=== PATIENT | female | born 1950 | race American Indian/Alaskan Native ===

== ENCOUNTER → 2017-06-25 | Outpatient (CLI) | payer OTHER, MEDICARE ==
[2017-06-25 12:16] LABS: HEMATOCRIT 33.1 % (37-47); MEAN CORPUSCULAR HEMOGLOBIN 30.3 pg (25-34); MEAN CORPUSCULAR HGB CONC 32.6 g/dl (32-36); MEAN PLATELET VOLUME 9.4 fL (7.4-10.4); PLATELET COUNT 311 K/uL (130-400); RED BLOOD COUNT 3.56 M/uL (4.2-5.4)
[2017-06-25 12:37] LABS: BLOOD UREA NITROGEN 14 mg/dl (7-18); BUN/CREATININE RATIO 20.4 (10-20); CALCIUM 8.5 mg/dl (8.5-10.1); CARBON DIOXIDE 29 mmol/L (21-32); CHLORIDE 107 mmol/L (98-107); CREATININE 0.68 mg/dl (0.60-1.20); GLUCOSE,FASTING 97 mg/dl (70-99); SODIUM 140 mmol/L (136-145)
[2017-06-25 12:48] LABS: CHOLESTEROL 227 mg/dl (0-200); CHOLESTEROL/HDL RATIO 4.6; HDL CHOLESTEROL 49 mg/dl; LDL CHOLESTEROL CALCULATED 125 mg/dl; TRIGLYCERIDES 263 mg/dl (0-150); VERY LOW DENSITY LIPOPROT CALC 53 mg/dl
== END | disposition home or self-care (01) ==
LOC: C.LABPBG 10:23
PROVIDERS: ATTEND Physician Assistant
DX: Z00.00 Encounter for general adult medical examination without abnormal findings (principal); E03.9 Hypothyroidism, unspecified; D64.9 Anemia, unspecified

== ENCOUNTER → 2017-10-12 | Outpatient (CLI) | payer OTHER, MEDICARE ==
[2017-10-12 17:14] LABS: HEMATOCRIT 29.5 % (37-47); MEAN CELL VOLUME 78.7 fL (80-100); MEAN CORPUSCULAR HGB CONC 30.5 g/dl (32-36); MEAN PLATELET VOLUME 9.7 fL (7.4-10.4); PLATELET COUNT 307 K/uL (130-400); RED CELL DISTRIBUTION WIDTH CV 15.7 % (11.5-14.5); RED CELL DISTRIBUTION WIDTH SD 45.1 fL (36.4-46.3); WHITE BLOOD COUNT 4.13 K/uL (4.8-10.8)
== END | disposition home or self-care (01) ==
LOC: C.LABPBG 14:37
PROVIDERS: ATTEND Physician Assistant
DX: D64.9 Anemia, unspecified (principal); E03.9 Hypothyroidism, unspecified

== ENCOUNTER → 2017-11-16 | Outpatient (CLI) | payer OTHER, MEDICARE ==
[2017-11-20 04:18] LABS: ANA SCREEN TC 249X NEGATIVE (NEGATIVE); ANTI-SS-A <1.0 NEG AI (<1.0 NEG); ANTI-SS-B <1.0 NEG AI (<1.0 NEG); COMPLEMENT C3 TC 44859W 166 MG/DL (90-180); COMPLEMENT C4 TC 44982E 48 MG/DL (16-47)
== END | disposition home or self-care (01) ==
LOC: C.LABPBG 11:39
PROVIDERS: ATTEND Internal Medicine Rheumatology
DX: M13.80 Other specified arthritis, unspecified site (principal)

== ENCOUNTER → 2017-12-18 | Outpatient (CLI) | payer OTHER, MEDICARE ==
[2017-12-18 17:01] LABS: BASO % 0.4 %; BASO ABS # 0.02 K/uL (0-0.2); EOS % 2.1 %; EOS ABS # 0.11 K/uL (0-0.5); HEMATOCRIT 34.1 % (37-47); HEMOGLOBIN 10.8 g/dL (12.0-16.0); IG# 0.01 K/uL (0.00-0.02); LYMPH % 20.5 %; LYMPH ABS # 1.07 K/uL (1.2-3.4); MEAN CELL VOLUME 81.4 fL (80-100); MEAN CORPUSCULAR HEMOGLOBIN 25.8 pg (25-34); MEAN CORPUSCULAR HGB CONC 31.7 g/dl (32-36); MEAN PLATELET VOLUME 9.4 fL (7.4-10.4); MONO % 9.8 %; MONO ABS # 0.51 K/uL (0.11-0.59); NEUT ABS # 3.49 K/uL (1.4-6.5); PLATELET COUNT 398 K/uL (130-400); RED CELL DISTRIBUTION WIDTH CV 22.3 % (11.5-14.5); RED CELL DISTRIBUTION WIDTH SD 65.6 fL (36.4-46.3); WHITE BLOOD COUNT 5.21 K/uL (4.8-10.8)
[2017-12-18 17:33] LABS: ALBUMIN 3.4 gm/dl (3.4-5.0); ALT/SGPT 23 U/L (12-78); AST/SGOT 21 U/L (15-37); BLOOD UREA NITROGEN 17 mg/dl (7-18); CARBON DIOXIDE 27 mmol/L (21-32); CREATININE 0.73 mg/dl (0.60-1.20); GLUCOSE 80 mg/dl (70-99); POTASSIUM 3.8 mmol/L (3.5-5.1); SODIUM 137 mmol/L (136-145)
[2017-12-18 17:38] LABS: ALKALINE PHOSPHATASE 91 U/L (45-117); TOTAL PROTEIN 7.2 gm/dl (6.4-8.2)
== END | disposition home or self-care (01) ==
LOC: C.LABPBG 14:11
PROVIDERS: ATTEND Internal Medicine Hematology & Oncology
DX: D50.9 Iron deficiency anemia, unspecified (principal)

== ENCOUNTER → 2018-01-14 | Outpatient (CLI) | payer OTHER, MEDICARE ==
[2018-01-14 13:21] LABS: BASO % 0.4 %; BASO ABS # 0.02 K/uL (0-0.2); EOS % 2.4 %; EOS ABS # 0.11 K/uL (0-0.5); HEMOGLOBIN 11.8 g/dL (12.0-16.0); LYMPH % 19.1 %; LYMPH ABS # 0.88 K/uL (1.2-3.4); MEAN CELL VOLUME 83.5 fL (80-100); MEAN CORPUSCULAR HEMOGLOBIN 27.4 pg (25-34); MEAN CORPUSCULAR HGB CONC 32.8 g/dl (32-36); MEAN PLATELET VOLUME 9.8 fL (7.4-10.4); MONO % 6.9 %; MONO ABS # 0.32 K/uL (0.11-0.59); NEUT % 71.2 %; NEUT ABS # 3.28 K/uL (1.4-6.5); PLATELET COUNT 251 K/uL (130-400); RED CELL DISTRIBUTION WIDTH CV 19.7 % (11.5-14.5); RED CELL DISTRIBUTION WIDTH SD 60.2 fL (36.4-46.3); WHITE BLOOD COUNT 4.61 K/uL (4.8-10.8)
[2018-01-14 14:21] LABS: ALBUMIN 3.5 gm/dl (3.4-5.0); ALT/SGPT 25 U/L (12-78); BLOOD UREA NITROGEN 12 mg/dl (7-18); CALCIUM 8.9 mg/dl (8.5-10.1); CARBON DIOXIDE 28 mmol/L (21-32); CREATININE 0.73 mg/dl (0.60-1.20); GLUCOSE 91 mg/dl (70-99); SODIUM 136 mmol/L (136-145)
[2018-01-14 14:35] LABS: ALKALINE PHOSPHATASE 83 U/L (45-117); AST/SGOT 22 U/L (15-37); TOTAL PROTEIN 7.2 gm/dl (6.4-8.2)
== END | disposition home or self-care (01) ==
LOC: C.LABPBG 10:21
PROVIDERS: ATTEND Family Medicine
DX: E03.9 Hypothyroidism, unspecified (principal); Z79.899 Other long term (current) drug therapy; R60.0 Localized edema

== ENCOUNTER → 2018-04-29 | Outpatient (CLI) | payer OTHER, MEDICARE ==
[2018-04-29 16:58] LABS: BASO % 0.3 %; BASO ABS # 0.02 K/uL (0-0.2); EOS % 2.9 %; EOS ABS # 0.17 K/uL (0-0.5); HEMATOCRIT 34.1 % (37-47); HEMOGLOBIN 10.9 g/dL (12.0-16.0); LYMPH % 15.7 %; LYMPH ABS # 0.92 K/uL (1.2-3.4); MEAN CELL VOLUME 89.3 fL (80-100); MEAN CORPUSCULAR HEMOGLOBIN 28.5 pg (25-34); MEAN PLATELET VOLUME 9.7 fL (7.4-10.4); MONO % 7.7 %; MONO ABS # 0.45 K/uL (0.11-0.59); NEUT % 73.4 %; PLATELET COUNT 285 K/uL (130-400); RED CELL DISTRIBUTION WIDTH SD 48.9 fL (36.4-46.3); WHITE BLOOD COUNT 5.86 K/uL (4.8-10.8)
[2018-04-29 17:22] LABS: ALKALINE PHOSPHATASE 76 U/L (45-117); ALT/SGPT 19 U/L (12-78); AST/SGOT 18 U/L (15-37); BLOOD UREA NITROGEN 15 mg/dl (7-18); CALCIUM 8.4 mg/dl (8.5-10.1); CARBON DIOXIDE 28 mmol/L (21-32); CREATININE 0.67 mg/dl (0.60-1.20); GLUCOSE 103 mg/dl (70-99); POTASSIUM 3.8 mmol/L (3.5-5.1); SODIUM 137 mmol/L (136-145); TOTAL PROTEIN 6.8 gm/dl (6.4-8.2)
== END | disposition home or self-care (01) ==
LOC: C.LABPBG 13:58
PROVIDERS: ATTEND Nurse Practitioner Family
DX: D50.9 Iron deficiency anemia, unspecified (principal)

== ENCOUNTER → 2018-05-04 | Outpatient (CLI) | payer OTHER, MEDICARE ==
[2018-05-04 13:14] LABS: BASO % 0.2 %; BASO ABS # 0.01 K/uL (0-0.2); EOS % 2.5 %; EOS ABS # 0.16 K/uL (0-0.5); HEMATOCRIT 35.3 % (37-47); HEMOGLOBIN 11.2 g/dL (12.0-16.0); IG# 0.01 K/uL (0.00-0.02); LYMPH % 11.6 %; LYMPH ABS # 0.75 K/uL (1.2-3.4); MEAN CELL VOLUME 89.8 fL (80-100); MEAN CORPUSCULAR HEMOGLOBIN 28.5 pg (25-34); MEAN CORPUSCULAR HGB CONC 31.7 g/dl (32-36); MEAN PLATELET VOLUME 9.7 fL (7.4-10.4); MONO % 6.8 %; MONO ABS # 0.44 K/uL (0.11-0.59); NEUT % 78.7 %; NEUT ABS # 5.12 K/uL (1.4-6.5); PLATELET COUNT 272 K/uL (130-400); RED CELL DISTRIBUTION WIDTH CV 14.8 % (11.5-14.5); RED CELL DISTRIBUTION WIDTH SD 48.7 fL (36.4-46.3); WHITE BLOOD COUNT 6.49 K/uL (4.8-10.8)
[2018-05-04 14:59] LABS: ALBUMIN 3.3 gm/dl (3.4-5.0); BLOOD UREA NITROGEN 14 mg/dl (7-18); CARBON DIOXIDE 29 mmol/L (21-32); CREATININE 0.55 mg/dl (0.60-1.20); GLUCOSE 96 mg/dl (70-99); PHOSPHORUS 3.2 mg/dl (2.5-4.9); SODIUM 140 mmol/L (136-145)
[2018-05-06 20:17] LABS: ANA SCREEN TC 249X POSITIVE (NEGATIVE)
[2018-05-10 14:39] LABS: ANA TITER 1:40 TITER (<1:40)
== END | disposition home or self-care (01) ==
LOC: C.LAB1850 12:26
PROVIDERS: ATTEND Orthopaedic Surgery
DX: M25.462 Effusion, left knee (principal)

== ENCOUNTER 2019-08-03 07:37 | Inpatient (IN) ==
--- NOTE | 2019-07-21 16:27 | PAT Medication Instructions ---
Medication Instructions Date of Service July 21, 2019 Home Medications Medication Instructions Recorded levothyroxine 75 mcg tablet 75 mcg PO QAM #90 tab 03/21/19 Medications Centrum Silver 1 tab PO QAM 08/23/18 [History Confirmed 07/19/19] Ocuvite Adult 50 Plus 1 cap PO QAM 08/23/18 [History Confirmed 07/19/19] calcium carbonate [Calcium 600] 600 mg PO QDD 08/23/18 [History Confirmed 07/19/19] cholecalciferol (vitamin D3) [Vitamin D3] 5,000 unit PO HS 08/23/18 [History Confirmed 07/19/19] coenzyme Q10 [Co Q-10] 100 mg PO QAM 08/23/18 [History Confirmed 07/19/19] ferrous sulfate [iron] 325 mg PO QDL 08/23/18 [History Confirmed 07/19/19] folic acid 1 mg PO QAM 08/23/18 [History Confirmed 07/19/19] magnesium oxide 400 mg PO HS 08/23/18 [History Confirmed 07/19/19] omega 3-mlc-jsn-fish oil [Fish Oil] 1 cap PO BID 08/23/18 [History Confirmed 07/19/19] levothyroxine 75 mcg tablet 75 mcg PO QAM #90 tab 03/21/19 [Rx Confirmed 07/19/19] abatacept (with maltose) 250 mg intravenous solution 1 mg IV MONTHLY ea 06/16 [History Confirmed 07/19/19] hmtxrrx-wgjnprevitpos-pdetvyff 250 mg-250 mg-65 mg tablet 1 tab PO QAM PRN 06/26/19 [History Confirmed 07/19/19] prednisone 5 mg tablet 5 mg PO QAM 06/29/19 [History Confirmed 07/19/19] citalopram 10 mg PO HS 07/13/19 [History Confirmed 07/19/19] latanoprost 1 drp OPHTHALMIC (EYE) PM 07/13/19 [History Confirmed 07/19/19] psyllium husk [Metamucil] 1 tbsp PO QAM 07/13/19 [History Confirmed 07/19/19] ASK your surgeon for instructions udlmbtv-ljchnuwzsgozb-oppwdfcs 250 mg-250 mg-65 mg tablet 1 tab PO QAM PRN 06/14 11/30 [History Confirmed 07/19/19] ASK your prescriber and surgeon abatacept (with maltose) 250 mg intravenous solution 1 mg IV MONTHLY ea 06/16/19 [History Confirmed 07/19/19] STOP taking 2 weeks before surgery (or as soon as possible if surgery is within 2 weeks) Ocuvite Adult 50 Plus 1 cap PO QAM 08/23/18 [History Confirmed 07/19/19] omega 8-uqv-spf-fish oil [Fish Oil] 1 cap PO BID 08/23/18 [History Confirmed 07/19/19] coenzyme Q10 [Co Q-10] 100 mg PO QAM 08/23/18 [History Confirmed 07/19/19] DO NOT take the morning of surgery Centrum Silver 1 tab PO QAM 08/23/18 [History Confirmed 07/19/19] ferrous sulfate [iron] 325 mg PO QDL 08/23/18 [History Confirmed 07/19/19] folic acid 1 mg PO QAM 08/23/18 [History Confirmed 07/19/19] psyllium husk [Metamucil] 1 tbsp PO QAM 07/13/19 [History Confirmed 07/19/19] Take morning of surgery With a small sip of water, OTHERWISE NOTHING TO EAT OR DRINK AFTER MIDNIGHT: levothyroxine 75 mcg tablet 75 mcg PO QAM #90 tab 03/21/19 [Rx Confirmed 07/19/19] prednisone 5 mg tablet 5 mg PO QAM 06/29/19 [History Confirmed 07/19/19] Take evening before surgery calcium carbonate [Calcium 600] 600 mg PO QDD 08/23/18 [History Confirmed 07/19/19] cholecalciferol (vitamin D3) [Vitamin D3] 5,000 unit PO HS 08/23/18 [History Confirmed 07/19/19] magnesium oxide 400 mg PO HS 08/23/18 [History Confirmed 07/19/19] citalopram 10 mg PO HS 07/13/19 [History Confirmed 07/19/19] latanoprost 1 drp OPHTHALMIC (EYE) PM 07/13/19 [History Confirmed 07/19/19] Other Notes If you have any questions please call us at [phone] or [phone] or [phone] or [phone]
--- NOTE | 2019-07-22 08:47 | Anesthesiology Consultation ---
Date of Service July 22, 2019 Assessment & Plan (1) Encounter for pre-operative examination: PCP: 07/19/19: "patient is at acceptable risk for upcoming proposed surgery." Chart Review Chart Review: Pending: Refer to Additional Notes / Consult section (pending preop testing (labs, CXR, c-spine xray)) and Patient seen in Pre Admission Testing Teaching & Discussion Pre-Anesthesia Teaching/Discussion Notes: Instructed NPO after midnight before surgery,except medications with 15 cc of water. Medication instructions provided according to the PAT guidelines. History Surgery Operation Date: 08/03/19 10:30 Proposed Procedures p Left Total Knee Arthroplasty - Marko Porter DO Height/Weight Height: 5 ft 5 in Weight: 56.9 kg Allergies Allergy/AdvReac Type Severity Reaction Status Date / Time No Known Allergies Allergy Verified 07/19/19 08:52 Medications Home Medications Medication Instructions Recorded Confirmed Last Taken Centrum Silver 1 tab PO QAM 08/23/18 07/19/19 10/15/18 11:00 Ocuvite Adult 50 Plus 1 cap PO QAM 08/23/18 07/19/19 10/17/18 11:00 calcium carbonate [Calcium 600] 600 mg PO QDD 08/23/18 07/19/19 10/16/18 18:00 cholecalciferol (vitamin D3) 5,000 unit PO HS 08/23/18 07/19/19 10/16/18 10:00 [Vitamin D3] coenzyme Q10 [Co Q-10] 100 mg PO QAM 08/23/18 07/19/19 10/16/18 18:00 ferrous sulfate [iron] 325 mg PO QDL 08/23/18 07/19/19 10/17/18 11:00 folic acid 1 mg PO QAM 08/23/18 07/19/19 10/16/18 11:00 magnesium oxide 400 mg PO HS 08/23/18 07/19/19 10/16/18 18:00 omega 3-wka-mon-fish oil [Fish Oil] 1 cap PO BID 08/23/18 07/19/19 10/16/18 18:00 levothyroxine 75 mcg tablet 75 mcg PO QAM #90 tab 03/21/19 07/19/19 Unknown abatacept (with maltose) 250 mg 1 mg IV MONTHLY ea 06/16/19 07/19/19 Unknown intravenous solution ugocgci-xmpxvgpuklznu-shxmzpnh 250 1 tab PO QAM PRN 06/26/19 07/19/19 Unknown mg-250 mg-65 mg tablet prednisone 5 mg tablet 5 mg PO QAM 06/29/19 07/19/19 Unknown citalopram 10 mg PO HS 07/13/19 07/19/19 Unknown latanoprost 1 drp OPHTHALMIC (EYE) PM 07/13/19 07/19/19 Unknown psyllium husk [Metamucil] 1 tbsp PO QAM 07/13/19 07/19/19 Unknown Past Medical History Medical History Rheumatoid arthritis on abatacept/prednisone* Anemia iron deficiency (PCP monitoring) Hypothyroidism Cyst of kidney, acquired History of high cholesterol Hx of migraines Gastritis Liver lesion, left lobe Glaucoma Bilateral cataracts Whitfield cyst Depression Dry mouth Osteoarthritis of knee History of upper gastrointestinal bleeding remote hx Hx of cancer of uterus 2001 s/p hysterectomy/chemo/xrt Exercise / Class Metabolic Activity III < 4 Walking/Shop/Light housework Past Family History Family History Grandfather (Maternal) Family hx of colon cancer Diabetes Sister Depression Aunt Ovarian cancer paternal Past Surgical History Surgical History History of section History of colonoscopy History of dilatation and curettage History of esophagogastroduodenoscopy (EGD) History of tonsillectomy and adenoidectomy History of tooth extraction wisdom teeth History of total abdominal hysterectomy and bilateral salpingo-oophorectomy 2000--uterine cancer Hx of arthroscopic knee surgery LEFT Past Anesthesia History No Hx of Anesthesia Complications and No Family Hx of Anesthesia Complications History of PONV No Hx of PONV and No Hx of Motion Sickness Social History Smoking Status: Never smoker Do You Dip or Chew Tobacco: No Smoking End Date: Quit 18 YR AGO Hx Alcohol Use: Yes Alcohol type: wine alcohol intake frequency: holidays/special occasions only Hx Substance Use: No substance use type: does not use Review of Systems Patient denies chest pain, shortness of breath, cough, wheezing, palpitations. Physical Exam Vital Signs VITALS BP 121/75 P 72 TEMP 99.3 SP02 97%RA RESP 16 PHYSICAL Full neck and c-spine range of motion. Full TMJ range of motion. TMD 3 finger breaths Mallampati Score 2 Dentition: crowns on molars Lungs: clear throughout to auscultation Cardiac: regular rate and rhythm, no murmurs noted Spine: normal Carotid arteries: negative bruit Extremities: no edema Testing Electrocardiogram Date: 07/19/19 SR at 64bpm.
--- NOTE | 2019-07-22 09:37 | XRay Report ---
XR chest Pre-admission PA/Lat CLINICAL HISTORY: pat preoperative evaluation COMPARISON STUDY: 10/05/2018 FINDINGS: The bones soft tissues and hemidiaphragms are normal. The cardiomediastinal silhouette is n ormal. The lungs are clear. The pulmonary vasculature is normal. IMPRESSION: Negative chest. The above report was generated using voice recognition software. It may contain grammatical, syntax or spelling errors. Electronically signed by: Wesly Lenz M.D. 07/22/2019 9:35 AM
--- NOTE | 2019-07-22 09:38 | XRay Report ---
XR cervical spine 2 or 3V HISTORY: Arthritis. Instability. RHEUMATOID ARTHRITIS COMPARISON: None. FINDINGS: The cervical spine is visualized from C1 through the superior endplate of T1. There is no f racture. No subluxation. Minimal degenerative disc change no evidence for positional subluxation of the C1-C2 complex IMPRESSION: 1. No acute process. 2. C1-C2 complex is stable with varying positions. The above report was generated using voice recognition software. It may contain grammatical, syntax or spelling errors. Electronically signed by: Wesly Lenz M.D. 07/22/2019 9:36 AM
[2019-07-22 10:11] LABS: Basophils # (auto) 0.02 K/uL (0-0.2); Basophils % (auto) 0.3 %; Eosinophils # (auto) 0.09 K/uL (0-0.5); Eosinophils % (auto) 1.2 %; Hemoglobin 12.5 g/dL (12.0-16.0); Immature Granulocytes # (auto) 0.01 K/uL (0.00-0.02); Immature Granulocytes % (auto) 0.1 %; Lymphocytes % (auto) 8.1 %; Mean Corpuscular Hemoglobin 29.5 pg (25-34); Mean Corpuscular Hgb Conc 32.9 g/dL (32-36); Mean Corpuscular Volume 89.6 fL (80-100); Mean Platelet Volume 10.2 fL (7.4-10.4); Monocytes # (auto) 0.48 K/uL (0.11-0.59); Monocytes % (auto) 6.5 %; Neutrophils % (auto) 83.8 %; Platelet Count 261 K/uL (130-400); RDW Coefficient of Variation 14.3 % (11.5-14.5); RDW Standard Deviation 47.3 fL (36.4-46.3); Red Blood Count 4.24 M/uL (4.2-5.4)
[2019-07-22 10:14] LABS: Estimated Average Glucose 114 mg/dl; Hemoglobin A1C 5.6 % (4.5-5.6)
[2019-07-22 10:19] LABS: Albumin Level 3.2 gm/dl (3.4-5.0); Calcium 9.3 mg/dl (8.5-10.1); Creatinine Clr Calc Pharmacy 60.2 ml/min; Est GFR (Non-African American) 77.7
[2019-07-22 10:33] LABS: Partial Thromboplastin Ratio 0.8; Partial Thromboplastin Time 21.9 Seconds (21.0-31.0)
[2019-07-22 10:34] LABS: Appearance Urine Clear (Clear); Bilirubin Urine Negative (Negative); Blood Urine Negative (Negative); Color Urine Dark Yellow; Glucose Urine UA Negative (Negative); Ketones Urine Negative (Negative); Leukocyte Esterase Urine Negative (Negative); Nitrite Urine Negative (Negative); Protein Urine Negative (Negative); Specific Gravity Urine 1.011 (1.000-1.030); Urobilinogen Urine Negative (Negative); pH Urine 6.5 (4.5-7.5)
--- NOTE | 2019-07-27 18:04 | History & Physical Report ---
Date of Service July 27, 2019 date of surgery: 08-03-19 Assessment & Plan (1) Arthritis of knee, left: Further care discussed with Humaira and at this point in time has failed conservative measures and would like to proceed with a Left total knee replacement. Plan on discharge will be home with home health physical therapy. DVT prophalaxis with TEDs, SCDs and will also place on aspirin 81 mg p.o. b.i.d. for a month postop. Patient will have follow up appointment in our office two weeks post op for staple removal and re-evaluation. Patient otherwise has no other questions or concerns. History of Present Illness Chief Complaint: left knee pain Primary Care Provider: Kathryn Benson DO Ms Greer is a 69 year old female who is here for a follow up of left knee pain, presents for pre-op evaluation prior to a left total knee replacement at [facility]. She presents with pain and stiffness on the left side. She states that the symptoms have been chronic non-traumatic and her symptoms occur constantly with intermittent worsening. her pain has gradually worsened. Currently the patient states that the symptoms are moderate-severe and pain is described as aching and sharp. The symptoms are aggravated by ascending stairs, daily activities, first steps while awake, kneeling, repetitive activities, sleeping on the affected side, squatting, standing, walking. In addition to left knee pain the patient is also experiencing limping, nighttime awakening, pain, stiffness, tenderness and weakness. She has been treated with previous visco supplementation and corticosteroid injections, no relief with injections. Patient ambulates daily with cane. she also had previous left knee scope and partial menisectomy in September 2018. Allergies Allergy/AdvReac Type Severity Reaction Status Date / Time No Known Allergies Allergy Verified 07/19/19 08:52 Home Medications Home Medications Medication Instructions Recorded Confirmed Type Centrum Silver 1 tab PO QAM 08/23/18 07/19/19 History Ocuvite Adult 50 Plus 1 cap PO QAM 08/23/18 07/19/19 History calcium carbonate [Calcium 600] 600 mg PO QDD 08/23/18 07/19/19 History cholecalciferol (vitamin D3) 5,000 unit PO HS 08/23/18 07/19/19 History [Vitamin D3] coenzyme Q10 [Co Q-10] 100 mg PO QAM 08/23/18 07/19/19 History ferrous sulfate [iron] 325 mg PO QDL 08/23/18 07/19/19 History folic acid 1 mg PO QAM 08/23/18 07/19/19 History magnesium oxide 400 mg PO HS 08/23/18 07/19/19 History omega 0-jzf-vda-fish oil [Fish Oil] 1 cap PO BID 08/23/18 07/19/19 History levothyroxine 75 mcg tablet 75 mcg PO QAM #90 tab 03/21/19 07/19/19 Rx abatacept (with maltose) 250 mg 1 mg IV MONTHLY ea 06/16/19 07/19/19 History intravenous solution kauvtoq-eogbdegikvjps-bgljnbvl 250 1 tab PO QAM PRN 06/26/19 07/19/19 History mg-250 mg-65 mg tablet prednisone 5 mg tablet 5 mg PO QAM 06/29/19 07/19/19 History citalopram 10 mg PO HS 07/13/19 07/19/19 History latanoprost 1 drp OPHTHALMIC (EYE) PM 07/13/19 07/19/19 History psyllium husk [Metamucil] 1 tbsp PO QAM 07/13/19 07/19/19 History Past Med/Surg History Medical History Anemia iron deficiency (PCP monitoring) Whitfield cyst Bilateral cataracts Cyst of kidney, acquired Depression Dry mouth Gastritis Glaucoma History of high cholesterol History of upper gastrointestinal bleeding remote hx Hx of cancer of uterus 2001 s/p hysterectomy/chemo/xrt Hx of migraines Hypothyroidism Liver lesion, left lobe Osteoarthritis of knee Rheumatoid arthritis on abatacept/prednisone* Surgical History History of section History of colonoscopy History of dilatation and curettage History of esophagogastroduodenoscopy (EGD) History of tonsillectomy and adenoidectomy History of tooth extraction wisdom teeth History of total abdominal hysterectomy and bilateral salpingo-oophorectomy 2000--uterine cancer Hx of arthroscopic knee surgery LEFT Family History Grandfather (Maternal) Family hx of colon cancer Diabetes Sister Depression Aunt Ovarian cancer paternal Social History Preferred Language: Cymraes Communication Ability: Effective Lozenge Maker Required: No Beliefs That Will Affect Care: None Current Living Situation: Spouse Current Living Situation Comment: HAS MS Feels Safe at Home: Yes Smoking Status: Never smoker Second Hand Exposure: No ; Hx Alcohol Use: Yes Alcohol type: wine Hx Substance Use: No Seatbelt Use: always Review of Systems Review of Systems: All systems reviewed & are unremarkable except as noted in HPI & below Constitutional: no fever, no chills and no sweats Respiratory: no cough and no dyspnea Cardiovascular: no chest pain, no dyspnea and no orthopnea Gastrointestinal: no abdominal pain, no nausea and no vomiting Musculoskeletal: as per Subjective / HPI Physical Exam Physical Exam: Ht: 5ft 5in Wt: 56.9kg BP: 116/66 Pulse: 72 Constitutional: WD/WN, vitals as above no acute distress Respiratory: normal respiratory effort, lungs clear to auscultation no respiratory distress, no labored breathing and does not use accessory muscles Cardiovascular: RRR, no murmur, no edema Gastrointestinal (Abdomen): normal bowel sounds, soft, nontender, no hepatosplenomegaly Musculoskeletal: Knee: + knee abnormal to inspection (left knee- ), + effusion (+1 effusion), + surgical incision (well healed portals), + limited ROM of knee (ROM 0/3/110), + knee ROM with crepitation, + joint line tenderness (medial joint line) and + Chrystal's sign positive; no deformity, no skin erythema, no ecchymosis, no valgus laxity, no varus laxity, anterior drawer test negative, Aracely's sign negative and pivot shift test negative Results & Data Laboratory Results Laboratory Results WBC 7.40 K/uL (4.8-10.8) 07/22/19 09:00 RBC 4.24 M/uL (4.2-5.4) 07/22/19 09:00 Hgb 12.5 g/dL (12.0-16.0) 07/22/19 09:00 Hct 38.0 % (37-47) 07/22/19 09:00 MCV 89.6 fL (80-100) 07/22/19 09:00 MCH 29.5 pg (25-34) 07/22/19 09:00 MCHC 32.9 g/dL (32-36) 07/22/19 09:00 RDW Std Deviation 47.3 fL (36.4-46.3) H 07/22/19 09:00 RDW Coeff of Emely 14.3 % (11.5-14.5) 07/22/19 09:00 Plt Count 261 K/uL (130-400) 07/22/19 09:00 MPV 10.2 fL (7.4-10.4) 07/22/19 09:00 Immature Gran % (Auto) 0.1 % 07/22/19 09:00 Neut % (Auto) 83.8 % 07/22/19 09:00 Lymph % (Auto) 8.1 % 07/22/19 09:00 Crisp % (Auto) 6.5 % 07/22/19 09:00 Eos % (Auto) 1.2 % 07/22/19 09:00 Baso % (Auto) 0.3 % 07/22/19 09:00 Immature Gran # (Auto) 0.01 K/uL (0.00-0.02) 07/22/19 09:00 Neut # (Auto) 6.20 K/uL (1.4-6.5) 07/22/19 09:00 Lymph # (Auto) 0.60 K/uL (1.2-3.4) L 07/22/19 09:00 Crisp # (Auto) 0.48 K/uL (0.11-0.59) 07/22/19 09:00 Eos # (Auto) 0.09 K/uL (0-0.5) 07/22/19 09:00 Baso # (Auto) 0.02 K/uL (0-0.2) 07/22/19 09:00 PT 10.0 Seconds (9.0-12.0) 07/22/19 09:00 INR 1.0 (0.9-1.1) 07/22/19 09:00 APTT 21.9 Seconds (21.0-31.0) 07/22/19 09:00 PTT Ratio 0.8 07/22/19 09:00 Sodium 139 mmol/L (136-145) 07/22/19 09:00 Potassium 4.0 mmol/L (3.5-5.1) 07/22/19 09:00 Chloride 106 mmol/L (98-107) 07/22/19 09:00 Carbon Dioxide 29 mmol/L (21-32) 07/22/19 09:00 Anion Gap 4.0 (3-11) 07/22/19 09:00 BUN 14 mg/dl (7-18) 07/22/19 09:00 Creatinine 0.77 mg/dl (0.6-1.2) 07/22/19 09:00 Est Cr Clr Drug Dosing 60.2 ml/min 07/22/19 09:00 Est GFR ( Amer) 90.0 07/22/19 09:00 Est GFR (Non-Af Amer) 77.7 07/22/19 09:00 BUN/Creatinine Ratio 18.0 (10-20) 07/22/19 09:00 Glucose 97 mg/dl (70-99) 07/22/19 09:00 Estimat Average Glucose 114 mg/dl 07/22/19 09:00 Hemoglobin A1c 5.6 % (4.5-5.6) 07/22/19 09:00 Calcium 9.3 mg/dl (8.5-10.1) 07/22/19 09:00 Albumin 3.2 gm/dl (3.4-5.0) L 07/22/19 09:00 Urine Color Dark Yellow 07/22/19 09:00 Urine Appearance Clear (Clear) 07/22/19 09:00 Urine pH 6.5 (4.5-7.5) 07/22/19 09:00 Ur Specific [place] 1.011 (1.000-1.030) 07/22/19 09:00 Urine Protein Negative (Negative) 07/22/19 09:00 Urine Glucose (UA) Negative (Negative) 07/22/19 09:00 Urine Ketones Negative (Negative) 07/22/19 09:00 Urine Blood Negative (Negative) 07/22/19 09:00 Urine Nitrite Negative (Negative) 07/22/19 09:00 Urine Bilirubin Negative (Negative) 07/22/19 09:00 Urine Urobilinogen Negative (Negative) 07/22/19 09:00 Ur Leukocyte Esterase Negative (Negative) 07/22/19 09:00 Blood Type B Positive 07/22/19 09:00 Antibody Screen NEGATIVE 11/08/19 09:00 Diagnostic Findings Left Knee X-ray from March 2019 confirms advanced degenerative changes to the left knee, greatest medial compartments and patellofemoral joint, showing joint space narrowing, osteophyte formation and subchondral sclerosis. no acute bony pathology noted.
[~2019-08-03 07:37] MED LIST: ACETAMINOPHEN 500 MG TAB PO SCH; BUPIVACAINE 0.5 % 5 MG/1 ML PF 10ML VIAL ONE; CEFAZOLIN 1000MG 1,000 MG/7.5 ML SYR IV SCH; CeleBREX 200 MG CAP PO SCH; EPINEPHrine INJ 1 MG/ML AMP ONE; GABAPENTIN 300 MG CAP PO SCH; LR 15ML/HR IV SCH; MIDAZOLAM HCL 1 MG/ML 2ML VIAL ONE; ROPIVACAINE 0.5% 5 MG/ML 30 ML VIAL ONE; ROPIVACAINE 0.5% HCL/PF 150 MG, BUPIVACAINE 0.5% MPF 30 ML, EPINEPHrine 30MG/30ML (OR U... INFIL SCH; TRANEXAMIC ACID 1,000 MG **IV Intra-op IV SCH; TRANEXAMIC ACID 1,000 MG in 0.9 % SODIUM CHLORIDE 100 ML IV SCH; dexAMETHasone 4 MG TAB PO SCH; fentaNYL citrate 100 MCG/2 ML VIAL ONE
--- NOTE | 2019-08-03 08:19 | History & Physical Bridge Note ---
Date of Service August 03, 2019 History & Physical Bridge Note I have examined the patient, reviewed the History & Physical and in the interval since the performance of the History & Physical I have noted the following changes of clinical significance: no changes noted
[2019-08-03] MEDS ORDERED: ORTHO JOINT ANESTHETIC ONE (09:05)
[2019-08-03] MEDS ORDERED: BACITRACIN INJ 50,000 UNIT VIAL ONE (09:06)
[2019-08-03] MEDS ORDERED: PROPOFOL IV EMULSION 10 MG/ML 20 ML VIAL IV ONE ×2 (12:21→12:39)
[2019-08-03] MEDS ORDERED: PHENYLEPHRINE 100MCG/ML 5ML SYR ONE (12:23)
[2019-08-03] MEDS ORDERED: ePHEDrine sulfate 50 MG/ML SYR ONE (12:23)
[2019-08-03] MEDS ORDERED: ATROPINE SULFATE 0.1 MG/ML 10ML SYR IV PRN (12:34)
[2019-08-03] MEDS ORDERED: ePHEDrine sulfate 50 MG/ML AMP IV PRN (12:34)
--- NOTE | 2019-08-03 13:07 | Operative Report ---
Post Operative Report Pre & Post Diagnosis Operation Date: 08/03/19 10:10 Pre-Op Diagnosis: Left Knee Osteoarthritis Post-Op Diagnosis: Left Knee Osteoarthritis I identified the patient and participated in the time-out.: Yes Procedure Operation Date: 08/03/19 10:10 Actual Procedures p Left Total Knee Arthroplasty(Left) utilizing [employer] joursublette 2 patient matched total knee arthroplasty size 5 femur 4 tibia 12 polyethylene 32 oval patella- Marko Porter DO Surgeon Marko Porter DO Communications Coordinator Wesly LAWS Estimated Blood Loss 5 Findings Consistent with Post-Op Diagnosis Patient presents with severe end-stage tricompartmental degenerative joint disease left knee varus alignment 10 degree flexion contracture for total knee arthroplasty she was noted to have bone the bone changes marginal osteophyte subchondral sclerosis with eburnated bone Specimens Bone cartilage Drains Medium bore Hemovac Complications none Disposition Accompanied Patient To Recovery: No Disposition: Recovery Room Indications Patient presents with severe end-stage DJD is been no response to conservative therapy the above intraoperative findings noted patient failed attempts of Visco supplementation corticosteroid injection Visco supplementation relative rest activity modification bracing. Description of Procedure Patient properly identifiedAfter proper prepping and draping of the left lower extremity anterior midline incision was made over the region of the extensor extensor mechanism after meticulous hemostasis was obtained and maintained in subcutaneous tissues a medial parapatellar incision was made The patella was subluxed lateralward the medial lateral gutter were cleaned from any hypert rophic synovitis and scar tissue of the distal femoral block was placed and the distal femoral osteotomy cut was made subsequently the chamfers anterior and posterior osteotomy cuts were made utilizing the 4-in-1 block the tibia was subsequently subluxed anteriorward medial and ateral meniscal remnants were excised in their entirety remnants of the anterior and posterior cruciate ligaments were excised in their entirety excellent exposure of the proximal tibia was obtained the tibial osteotomy guide was placed on the proximal tibial osteotomy cut was made once again the knee was irrigated with copious amounts of sterile saline solution the patella was subsequently everted lateralward thickened scar tissue around the patella was removed the patella was subsequently cut utilizing a freehand technique and was drilled prepared for final preparation and placement of patella socially flexion-extension gaps were checked and the equal and symmetric trials were placed to the appropriate femora l and tibial trials with poly-spacer being placed for equal flexion and extension gaps and full range of motion including extension to 0 and flexion to 140 the trial components after having been taken to recovery range of motion was subsequently removed meticulous hemostasis was obtained and maintained subsequently a knee block injection of joint cocktail including ropivacaine 0.5% 150 mg. Bupivacaine 0.5% epinephrine 1-200,030 mL's toradol 30 mg dexamethasone 4 mg ketamine 10 mg clonidine 100 micrograms normal saline solution 30 mg was infiltrated into the soft tissues of the posterior knee medial lateral gutters and periosteal synovium special attention was paid to protect neurovascular structures at all times subsequently trial components having been removed the knee was irrigated with sterile saline solution. debris was removed the proximal tibia was subsequently prepared and was made ready for the placement of the tibial component tibial component was also cemented and tamped into position the femoral component was subsequently placed and cemented in the position the patellar component was subsequently cemented in position because hemostasis once again obtained and maintained wound having been thoroughly irrigated with debridement and debridement lavage was performed as well as a medial parapatellar incision closed with #1 Vicryl in interrupted fashion subcutaneous was closed with #2 Vicryl skin was closed with skin clips. PA-C was necessary for prepping and drapping as well as wound closure of deep fascia Sub cutaneous tissue and skin and was necessary for the case. A sterile compressive dressing was placed patient was taken to recovery in stable condition of report dictated by German I attest to the content of the Intraoperative Record and any orders documented therein. Any exceptions are noted below. I attest to the content of the Intraoperative Record and any orders documented therein. Any exceptions are noted below.
--- NOTE | 2019-08-03 14:22 | XRay Report ---
XR knee LT 1 or 2V routine HISTORY: 69 years-old Female Surgical Post Op left knee total joint arthroplasty COMPARISON: None available TECHNIQUE: 3 views of the left knee FINDINGS: Left knee total joint arthroplasty and patella resurfacing demonstrates satisfactory alignment. No ac choctaw fracture, dislocation or opaque foreign body. Anterior midline skin zachariah are noted along with expected postsurgical soft tissue swelling and deep tissue air. IMPRESSION: Satisfactory alignment of the left knee total joint arthroplasty. The above report was generated using voice recognition software. It may contain grammatical, syntax o r spelling errors. Electronically signed by: Refugio Clifford M.D. 08/03/2019 2:21 PM
--- NOTE | 2019-08-03 14:56 | Anesthesiology Progress Note ---
Date of Service August 03, 2019 Anesthesia Post Procedure Vital Signs Vital Signs: Temp Pulse Pulse Resp BP Pulse Ox 08/03/19 14:35 36.6 C 72 17 130/75 100 08/03/19 14:25 36.6 C 78 20 120/71 100 08/03/19 14:15 36.3 C L 79 20 122/72 99 08/03/19 14:05 36.3 C L 81 17 117/64 98 08/03/19 13:55 36.3 C L 85 17 125/61 98 08/03/19 13:46 36.3 C L 92 H 11 L 121/66 97 08/03/19 08:01 36.7 C 77 18 125/80 97 Transfer of Care Handoff Completed per policy Notes Mental Status: alert / awake / arousable Patient Amnestic to Procedure: Yes Nausea / Vomiting: adequately controlled Pain: adequately controlled Airway Patency, RR, SpO2: stable & adequate BP & HR: stable & adequate Hydration State: stable & adequate Neuraxial Anesthesia: was administered and sensory block is resolving Anesthetic Complications: no major complications apparent
[2019-08-03] MEDS ORDERED: NALOXONE HCL 0.4 MG/1 ML VIAL/CARP IV PRN (15:03)
[2019-08-03] MEDS ORDERED: OXYCODONE HCL IR 5 MG TAB (IMMEDIATE RELEASE) PO PRN (15:03)
[2019-08-03] MEDS ORDERED: bisacodyL 10 MG SUPP PR PRN (15:03)
[2019-08-03] MEDS ORDERED: METOCLOPRAMIDE HCL INJ 5 MG/ML 2 ML VIAL IV PRN (15:03)
[2019-08-03] MEDS ORDERED: MAGNESIUM HYDROXIDE SUSP 30 ML UDC PO PRN (15:03)
[2019-08-03] MEDS ORDERED: ONDANSETRON INJ 2 MG/ML 2 ML VIAL IV PRN (15:03)
[2019-08-03] MEDS ORDERED: SODIUM CHLORIDE 0.9% 1000ML 1,000 ML IV SCH (15:03)
[2019-08-03] MEDS ORDERED: HYDROmorphone INJ 1 MG/ML SYRINGE IV PRN (15:03)
[2019-08-03] MEDS: KETOROLAC TROMETHAMINE 15 MG/ML VIAL IV SCH ×2 (16:02→21:59)
[2019-08-03] MEDS: ACETAMINOPHEN 500 MG TAB PO SCH ×2 (16:03→21:59)
[2019-08-03] MEDS ORDERED: CALCIUM 600MG + VIT D 400 IU TAB PO SCH (16:30)
[2019-08-03] MEDS: DOCUSATE SODIUM 100 MG CAP PO SCH (20:24)
[2019-08-03] MEDS: CEFAZOLIN 1000MG 1,000 MG/7.5 ML SYR IV SCH (20:25)
[2019-08-03] MEDS: ASPIRIN 81 MG ECTAB PO SCH (20:26)
[2019-08-03] MEDS ORDERED: CITALOPRAM 20 MG TAB PO SCH (21:00)
[2019-08-03] MEDS ORDERED: CHOLECALCIFEROL 1,000 UNITS 25 MCG TAB PO SCH (21:00)
[2019-08-03] MEDS ORDERED: MAGNESIUM OXIDE 400 MG TAB PO SCH (21:00)
[2019-08-03] MEDS ORDERED: LATANOPROST 0.005% OP SOLN 2.5 ML BTL OP SCH (21:00)
[2019-08-03] MEDS ORDERED: SENNA 8.6 MG TAB PO SCH (21:00)
[2019-08-04] MEDS: CEFAZOLIN 1000MG 1,000 MG/7.5 ML SYR IV SCH (05:00)
[2019-08-04] MEDS: KETOROLAC TROMETHAMINE 15 MG/ML VIAL IV SCH ×2 (05:00→10:28)
[2019-08-04] MEDS: ACETAMINOPHEN 500 MG TAB PO SCH ×2 (05:02→13:39)
[2019-08-04 05:41] LABS: Hematocrit (blood only) 31.7 % (37-47); Hemoglobin 10.5 g/dL (12.0-16.0); Mean Corpuscular Hemoglobin 29.7 pg (25-34); Mean Corpuscular Hgb Conc 33.1 g/dL (32-36); Mean Corpuscular Volume 89.8 fL (80-100); Mean Platelet Volume 9.5 fL (7.4-10.4); Platelet Count 247 K/uL (130-400); RDW Coefficient of Variation 14.5 % (11.5-14.5); RDW Standard Deviation 47.9 fL (36.4-46.3); Red Blood Count 3.53 M/uL (4.2-5.4); White Blood Count 11.57 K/uL (4.8-10.8)
[2019-08-04 06:11] LABS: BUN Creatinine Ratio 17.4 (10-20); Calcium 8.4 mg/dl (8.5-10.1); Creatinine Clr Calc Pharmacy 55.6 ml/min; Est GFR (African American) 83.4; Potassium 4.2 mmol/L (3.5-5.1)
[2019-08-04] MEDS ORDERED: LEVOTHYROXINE SODIUM 75 MCG TABLET PO SCH (06:30)
[2019-08-04] MEDS: DOCUSATE SODIUM 100 MG CAP PO SCH (08:12)
--- NOTE | 2019-08-04 08:12 | Orthopedic Progress Note ---
Date of Service August 04, 2019 Assessment & Plan (1) History of total left knee replacement: POD #1 s/p Left TKA pt/ot dvt proph with [facility]/SCD/ASA plan for d/c home with HHPT when stable, recheck after PT today. Subjective POD #1 s/p Left TKA Review of Systems Constitutional: no fever, no chills and no sweats Respiratory: no cough and no dyspnea Cardiovascular: no chest pain and no dyspnea Gastrointestinal: no abdominal pain, no nausea and no vomiting Physical Exam Physical Exam: Vital Signs Temp 36.7 C 08/04/19 07:10 Pulse 64 08/04/19 07:10 Resp 15 08/04/19 07:10 BP 112/67 08/04/19 07:10 Pulse Ox 99 08/04/19 07:10 Intake & Output 08/03/19 08/04/19 08/04/19 18:59 06:59 18:59 Intake Total 2955 / 3105 150 / 3105 Output Total 55 / 355 300 / 355 Balance 2900 / 2750 -150 / 2750 Weight 56 kg Intake: IV 1455 / 1455 Lr 1,000 ml @ 15 mls/hr IV . 1000 / 1000 Q24H CATIA Rx#:[id number] Nss 1000ML 1,0 00 ml @ 100 mls/ 235 / 235 hr IV .Q10H SC H Rx#:[id number] Cyklokapron 1, 000 mg In Sodium 220 / 220 Chloride 100 m l @ 660 mls/hr IV 0630 CATIA Rx#:[id number] IV Perioperative 1500 / 1500 Oral 150 / 150 Output: Estimated Blood Loss 5 / 5 Drain Output 50 / 350 300 / 350 Left Knee Hemo vac #1 50 / 350 300 / 350 Other: # Unmeasured Voi ds 2 1 Constitutional: WD/WN, vitals as above no acute distress Musculoskeletal: Left Leg: NVDI, calf SNT, negative velia sign. DP palpable, able to wiggle toes/ankle movement without difficulty. dressing clean dry and intact. Results & Data Vital Signs (Past 12 Hours) Vital Signs Temp Pulse Resp BP BP Pulse Ox 08/04/19 07:10 36.7 C 64 15 112/67 99 08/04/19 04:18 36.5 C 73 14 107/62 99 08/04/19 00:10 36.6 C 71 14 96/57 L 99 Laboratory Results Laboratory Results WBC 11.57 K/uL (4.8-10.8) H 08/04/19 05:11 RBC 3.53 M/uL (4.2-5.4) L 08/04/19 05:11 Hgb 10.5 g/dL (12.0-16.0) L 08/04/19 05:11 Hct 31.7 % (37-47) L 08/04/19 05:11 MCV 89.8 fL (80-100) 08/04/19 05:11 MCH 29.7 pg (25-34) 08/04/19 05:11 MCHC 33.1 g/dL (32-36) 08/04/19 05:11 RDW Std Deviation 47.9 fL (36.4-46.3) H 08/04/19 05:11 RDW Coeff of Emely 14.5 % (11.5-14.5) 08/04/19 05:11 Plt Count 247 K/uL (130-400) 08/04/19 05:11 MPV 9.5 fL (7.4-10.4) 08/04/19 05:11 Immature Gran % (Auto) 0.1 % 07/22/19 09:00 Neut % (Auto) 83.8 % 07/22/19 09:00 Lymph % (Auto) 8.1 % 07/22/19 09:00 Armstrong % (Auto) 6.5 % 07/22/19 09:00 Eos % (Auto) 1.2 % 07/22/19 09:00 Baso % (Auto) 0.3 % 07/22/19 09:00 Immature Gran # (Auto) 0.01 K/uL (0.00-0.02) 07/22/19 09:00 Neut # (Auto) 6.20 K/uL (1.4-6.5) 07/22/19 09:00 Lymph # (Auto) 0.60 K/uL (1.2-3.4) L 07/22/19 09:00 Armstrong # (Auto) 0.48 K/uL (0.11-0.59) 07/22/19 09:00 Eos # (Auto) 0.09 K/uL (0-0.5) 07/22/19 09:00 Baso # (Auto) 0.02 K/uL (0-0.2) 07/22/19 09:00 PT 10.0 Seconds (9.0-12.0) 07/22/19 09:00 INR 1.0 (0.9-1.1) 07/22/19 09:00 APTT 21.9 Seconds (21.0-31.0) 07/22/19 09:00 PTT Ratio 0.8 07/22/19 09:00 Sodium 139 mmol/L (136-145) 08/04/19 05:11 Potassium 4.2 mmol/L (3.5-5.1) 08/04/19 05:11 Chloride 108 mmol/L (98-107) H 08/04/19 05:11 Carbon Dioxide 26 mmol/L (21-32) 08/04/19 05:11 Anion Gap 5.0 (3-11) 08/04/19 05:11 BUN 14 mg/dl (7-18) 08/04/19 05:11 Creatinine 0.82 mg/dl (0.6-1.2) 08/04/19 05:11 Est Cr Clr Drug Dosing 55.6 ml/min 08/04/19 05:11 Est GFR ( Amer) 83.4 08/04/19 05:11 Est GFR (Non-Af Amer) 72.0 08/04/19 05:11 BUN/Creatinine Ratio 17.4 (10-20) 08/04/19 05:11 Glucose 101 mg/dl (70-99) H 08/04/19 05:11 Estimat Average Glucose 114 mg/dl 07/22/19 09:00 Hemoglobin A1c 5.6 % (4.5-5.6) 07/22/19 09:00 Calcium 8.4 mg/dl (8.5-10.1) L 08/04/19 05:11 Albumin 3.2 gm/dl (3.4-5.0) L 07/22/19 09:00 Urine Color Dark Yellow 07/22/19 09:00 Urine Appearance Clear (Clear) 07/22/19 09:00 Urine pH 6.5 (4.5-7.5) 07/22/19 09:00 Ur Specific [place] 1.011 (1.000-1.030) 07/22/19 09:00 Urine Protein Negative (Negative) 07/22/19 09:00 Urine Glucose (UA) Negative (Negative) 07/22/19 09:00 Urine Ketones Negative (Negative) 07/22/19 09:00 Urine Blood Negative (Negative) 07/22/19 09:00 Urine Nitrite Negative (Negative) 07/22/19 09:00 Urine Bilirubin Negative (Negative) 07/22/19 09:00 Urine Urobilinogen Negative (Negative) 07/22/19 09:00 Ur Leukocyte Esterase Negative (Negative) 07/22/19 09:00 Blood Type B Positive 07/22/19 09:00 Antibody Screen NEGATIVE 07/22/19 09:00 Diagnostic Findings XR knee LT 1 or 2V routine HISTORY: 69 years-old Female Surgical Post Op left knee total joint arthroplasty COMPARISON: None available TECHNIQUE: 3 views of the left knee FINDINGS: Left knee total joint arthroplasty and patella resurfacing demonstrates satisfactory alignment. No acute fracture, dislocation or opaque foreign body. Anterior midline skin zachariah are noted along with expected postsurgical soft tissue swelling and deep tissue air. IMPRESSION: Satisfactory alignment of the left knee total joint arthroplasty.
[2019-08-04] MEDS: ASPIRIN 81 MG ECTAB PO SCH (08:13)
[2019-08-04] MEDS ORDERED: predniSONE 5 MG TAB PO SCH (09:00)
[2019-08-04] MEDS ORDERED: MULTIVITAMIN TAB PO SCH (09:00)
--- NOTE | 2019-08-04 10:50 | Anesthesiology Progress Note ---
Date of Service August 04, 2019 Anesthesia Post Procedure Vital Signs Vital Signs: Temp Pulse Pulse Resp BP BP Pulse Ox 08/04/19 07:10 36.7 C 64 15 112/67 99 08/04/19 04:18 36.5 C 73 14 107/62 99 08/04/19 00:10 36.6 C 71 14 96/57 L 99 08/03/19 19:55 36.8 C 84 17 119/73 98 08/03/19 17:48 36.6 C 86 15 112/68 99 08/03/19 16:48 36.7 C 85 17 102/62 99 08/03/19 16:01 92 H 17 123/72 100 08/03/19 15:20 36.4 C L 74 17 110/65 100 08/03/19 14:50 36.6 C 77 16 122/68 100 08/03/19 14:35 36.6 C 72 17 130/75 100 08/03/19 14:25 36.6 C 78 20 120/71 100 08/03/19 14:15 36.3 C L 79 20 122/72 99 08/03/19 14:05 36.3 C L 81 17 117/64 98 08/03/19 13:55 36.3 C L 85 17 125/61 98 08/03/19 13:46 36.3 C L 92 H 11 L 121/66 97 Pain Intensity Left Leg: Pain Intensity: 4 Notes Mental Status: alert / awake / arousable and participated in evaluation Nausea / Vomiting: adequately controlled Pain: adequately controlled Airway Patency, RR, SpO2: stable & adequate BP & HR: stable & adequate Hydration State: stable & adequate Neuraxial Anesthesia: sensory block resolved Anesthetic Complications: no major complications apparent
[2019-08-04] MEDS ORDERED: FERROUS SULFATE 325 MG TAB PO SCH (11:30)
--- NOTE | 2019-08-04 17:57 | Discharge Summary ---
Date of Service date of discharge: August 04, 2019 date of admission: 08/03/19 Admission HPI Per Admitting Provider Ms Greer is a 69 year old female who is here for a follow up of left knee pain, presents for pre-op evaluation prior to a left total knee replacement at [facility]. She presents with pain and stiffness on the left side. She states that the symptoms have been chronic non-traumatic and her symptoms occur constantly with intermittent worsening. her pain has gradually worsened. Currently the patient states that the symptoms are moderate-severe and pain is described as aching and sharp. The symptoms are aggravated by ascending stairs, daily activities, first steps while awake, kneeling, repetitive activities, sleeping on the affected side, squatting, standing, walking. In addition to left knee pain the patient is also experiencing limping, nighttime awakening, pain, stiffness, tenderness and weakness. She has been treated with previous visco supplementation and corticosteroid injections, no relief with injections. Patient ambulates daily with cane. she also had previous left knee scope and partial menisectomy in September 2018. Principal Diagnosis left knee osteoarthritis Discharge Exam Vital Signs Temp 36.7 C 08/04/19 16:04 Pulse 64 08/04/19 16:04 Resp 15 08/04/19 16:04 BP 107/62 08/04/19 16:04 Pulse Ox 99 08/04/19 16:04 Intake & Output 08/03/19 08/04/19 08/04/19 18:59 06:59 18:59 Intake Total 2955 / 3105 150 / 3105 415 / 415 Output Total 55 / 355 300 / 355 175 / 175 Balance 2900 / 2750 -150 / 2750 240 / 240 Weight 56 kg 56 kg Intake: IV 1455 / 1455 Lr 1,000 ml @ 15 mls/hr IV . 1000 / 1000 Q24H CATIA Rx#:[id number] Nss 1000ML 1,000 ml @ 100 mls/ 235 / 235 hr IV .Q10H CATIA Rx#:[id number] Cyklokapron 1,000 mg In Sodium 220 / 220 Chloride 100 ml @ 660 mls/hr IV 0630 CATIA Rx#:[id number] IV Perioperative 1500 / 1500 Oral 150 / 150 415 / 415 Output: Estimated Blood Loss 5 / 5 Drain Output 50 / 350 300 / 350 175 / 175 Left Knee Hemovac #1 50 / 350 300 / 350 175 / 175 Other: # Unmeasured Voids 2 1 Constitutional WD/WN, vitals as above no acute distress Musculoskeletal left knee: NVDI, calf SNT, negative velia sign. DP palpable, able to wiggle toes/ankle movement without difficulty. CLARIBEL dressing clean dry and intact. expected post-operative bruising noted. Discharge Data Allergies Allergy/AdvReac Type Severity Reaction Status Date / Time No Known Allergies Allergy Verified 07/19/19 08:52 Consultations 08/03/19 15:03 Consult Case Management - Discharge Planning Routine Procedures Performed Operation Date: 08/03/19 10:10 Actual Procedures p Left Total Knee Arthroplasty(Left) - Marko Porter DO Ordered Studies 08/03/19 05:00 US - OR guided needle placemen Routine Hospital Course (1) History of total left knee replacement: POD #1 s/p Left TKA pt/ot dvt proph with [facility]/SCD/ASA plan for d/c home with HHPT when stable, recheck after PT today. Total Time Total Time Spent Total Time Spent (In Minutes): 20 Total Time Includes: Examination of the Patient, Discharge Planning and Medication Reconciliation Discharge Plan Discharge Items Patient Disposition: Home - Self-Care Reason For Visit: LEFT KNEE OSTEOARTHRITIS Discharge Diagnosis: left total knee replacement Activity: Per Instructions section Lifting: Wait until after follow-up appointment Weightbearing: Full weightbearing and Left weightbearing Non-emergency contact: Surgeon Call non-emergency contact if: your temperature is above 101, your wound has increased redness and your wound pain has increased Follow-up/Referrals: Kathryn Benson DO [Primary Care Provider] - Diet: Regular Addtl Attending Provider Instructions: ACTIVITY RECOMMENDATIONS: SELF CARE INSTRUCTIONS AFTER TOTAL KNEE REPLACEMENT A. You may need to continue a physical therapy program after discharge from the hospital. There are several options available to you. Your doctor will assist you in selecting the best one for you. 1. An out-patient facility 2 to 3 times a week for therapy or home therapy. 2. Continue working on all exercises taught to you in the hospital. Your goals should be to increase bending of your knee to 90 degrees and beyond and to fully straighten your knee. B. You may progress at your own pace from walking with a walker or crutches to a cane; then to no assistive devices. C. Make walking a part of your daily routine. Be up as much as comfortable w ith rest periods throughout the day. Rest with leg elevation is very important. Use the ice wrap frequently for the first 3-4 weeks. D. There are no restrictions on activities. You may ride in a car, shop, participate in head of english and all social activities. E. Wear the long elastic stockings (MONICA hose) 20 hours a day for 2 weeks after surgery. They can be removed several times a day for laundering and for a bath. F. You may shower, no tub baths until cleared by your doctor. SPECIAL CARE INSTRUCTIONS: VERY IMPORTANT TO READ AND REVIEW A. There are a few signs you need to watch for after you are home. Call [facility] [place] if you notice any of the followin. Increased severe knee pain. Some pain is expected especially when you exercise. 2. Increased swelling in your leg or knee; pain or swelling of the calf muscle in either lower leg. 3. Any fluid drainage from the incision. 4. Shortness of breath or chest pain. B. Please call [facility] if you have any concerns or questions about your operation or recovery. The doctor or his nurse will return your call promptly. C. You must take antibiotics before dental work, bladder, bowel or other surgery. Your doctor will provide you with a permanent care to carry describing this precaution. IMPORTANT: * REMEMBER TO TAKE ASPIRIN, 81 MG, TWICE DAILY FOR 4 WEEKS UNLESS OTHERWISE DIR ECTED. THIS IS YOUR BLOOD THINNER. * HIGH RISK PATIENTS MAY BE PRESCRIBED A STRONGER BLOOD THINNER. THIS WILL BE PROVIDED AT DISCHARGE. * CALL IF INCREASED PAIN, REDNESS, DRAINAGE OR FEVER GREATER THAT 101. * WEAR MONICA HOSE 20 HOURS PER DAY FOR 2 WEEKS. * CLARIBEL Dressing- This is a large suction dressing covering your incision. This will help pull any excess drainage from the wound and allow your incision to heal properly. You may shower with this if you can keep the unit outside of the shower. If any bleeding or leakage is noted please call your doctor's office. This will remain on your incision for 7 days and then should be removed. This can be done yourself or by the home nursing staff if applicable. The entire unit is disposable once removed. Once removed, keep incision clean and dry. If redness or drainage is noted, please call your surgeon. IF INCISION IS LEAKING THROUGH DRESSING, CALL THE OFFICE . FOLLOW UP VISIT: If appointment is not already scheduled: Please call [facility] [place] to make a follow-up appointment for 2 weeks after your surgery at . Pending Studies at Discharge: Yes Studies:: pathology report Stand-Alone Forms: My [facility], Smoking Cessation Medications and DC Order Prescriptions: New celecoxib [Celebrex] 200 mg Capsule 200 mg PO BID Qty: 60 RF: 0 aspirin [Ecotrin Low Strength] 81 mg Tablet,Delayed Release (Dr/Ec) 81 mg PO BID 30 Days Qty: 60 RF: 0 acetaminophen [Tylenol Extra Strength] 500 mg Tablet 1,000 mg PO Q8 14 Days Qty: 84 RF: 0 oxycodone 5 mg Tablet 5 mg PO Q4H MDD 6 tabs PRN (Reason: pain) Qty: 30 RF: 0 sennosides [Senokot] 8.6 mg Tablet 17.2 mg PO HS PRN (Reason: constipation) Qty: 30 RF: 0 Continued levothyroxine 75 mcg tablet 75 mcg PO QAM Qty: 90 RF: 1 folic acid 1 mg tablet See Rx Instructions .ROUTE .COMPLEX Qty: 90 RF: 3 prednisone 5 mg tablet 5 mg PO QAM RF: 0 Orencia (with maltose) 250 mg recon soln 1 mg IV MONTHLY RF: 0 calcium carbonate [Calcium 600] 600 mg calcium (1,500 mg) Tablet 600 mg PO QDD RF: 0 ferrous sulfate [iron] 325 mg (65 mg iron) Tablet 325 mg PO QDL RF: 0 coenzyme Q10 [Co Q-10] 100 mg Capsule 100 mg PO QAM RF: 0 Centrum Silver 0.4-300-250 mg-mcg-mcg Tablet 1 tab PO QAM RF: 0 cholecalciferol (vitamin D3) [Vitamin D3] 5,000 unit Tablet 5,000 unit PO HS RF: 0 Ocuvite Adult 50 Plus 250-5-1 mg Capsule 1 cap PO QAM RF: 0 magnesium oxide 400 mg magnesium Tablet 400 mg PO HS RF: 0 Metamucil 3.4 gram/5.4 gram Powder 1 tbsp PO QAM RF: 0 citalopram 10 mg tablet 10 mg PO HS RF: 0 latanoprost 0.005 % Drops 1 drp OPHTHALMIC (EYE) PM RF: 0 Discontinued omega 9-rqt-akf-fish oil [Fish Oil] 1,000 mg (120 mg-180 mg) Capsule 1 cap PO BID RF: 0 Discharge Orders: Discharge Order (Routine); Ordered 08/04/19 Ordered By: Srinath Renee/Other Patient Handouts: Post Op Pain Manage Home Meds, Replacement Knee After Hospital Admission Data Admit Date/Time: 08/03/19 12:15 Attending Provider: Marko Porter Admit Provider: Marko Porter Primary Care Provider: Kathryn Benson Other Interventions: Discharge Summary Assessment (RN) Last Done: 08/04/19 16:04 DC Date/Time DO NOT enter until pt leaves facility: 08/04/19 16:50
[2019-08-04] MEDS ORDERED: CeleBREX 200 MG CAP PO SCH (21:00)
== END 2019-08-04 16:50 | disposition home or self-care (01) | DRG 470 ==
LOC: ASU 07:37 → 3E 12:15

== ENCOUNTER 2022-05-08 19:15 | Inpatient (IN) ==
[2022-05-08 21:14] LABS: Appearance Urine Cloudy (Clear); Bacteria Urine Automated Negative (Negative); Bilirubin Urine Negative (Negative); Blood Urine 3+ (Negative); Color Urine Dark Yellow; Epithelial Cell Urine Auto >30 /lpf (0-5); Glucose Urine UA Negative (Negative); Ketones Urine 2+ (Negative); Leukocyte Esterase Urine 2+ (Negative); Nitrite Urine Negative (Negative); Protein Urine 1+ (Negative); Specific Gravity Urine 1.019 (1.000-1.030); Urobilinogen Urine Negative (Negative); WBC Urine Automated >30 /hpf (0-5); pH Urine 6.5 (4.5-7.5)
[2022-05-08 21:15] LABS: Albumin Globulin Ratio 1.4 (0.9-2); Albumin Level 4.2 gm/dl (3.4-5.0); Bilirubin,Total 1.2 mg/dl (0.2-1.0); Calcium 9.7 mg/dl (8.5-10.1); Creatinine Clr Calc Pharmacy 53.1 ml/min; Est GFR (African American) 99.6 ml/min; Potassium 4.2 mmol/L (3.5-5.1); Total Protein 7.2 gm/dl (6.0-8.3)
[2022-05-08 21:16] LABS: Cast Urine Automated >30 /lpf (0-5)
[2022-05-08 21:24] LABS: Calcium Oxalate Crystals Urine Present (None Prsent); Mucus Urine Present (None Prsent); RBC Urine Automated >30 /hpf (0-4)
[2022-05-08 21:25] LABS: Renal Epithelial Cells Urine 0-5 /lpf (0-5)
--- NOTE | 2022-05-08 21:27 | Emergency Department Note ---
Impression & Plan SBO (small bowel obstruction), Abdominal pain, Nausea & vomiting, Acute UTI ED Provider Note Provider: Kenrick Lezama MD DATE OF SERVICE: 05/08/2022 CHIEF COMPLAINT: Mid abdominal pain and vomiting HISTORY OF PRESENT ILLNESS: Patient is a 71-year-old woman history of uterine cancer in the past and rheumatoid arthritis presenting here today complaining of developing yesterday evening some mid abdominal discomfort and this morning some nausea and vomiting tickly with eating. Denies chest pain or fevers. No sick contact reported. No trauma reported. Denies any other urinary symptoms have been followed with urology for some hematuria and a bladder mass but is awaiting further follow-up with this. Referred from urgent care given symptoms. No fevers reported. REVIEW OF SYSTEMS: A total of 10 review of systems was obtained and negative except as stated above in the HPI. PAST MEDICAL HISTORY: As noted above MEDICATIONS: Reviewed home medication list SOCIAL HISTORY: Former smoker PHYSICAL EXAM: GENERAL: alert and oriented in no acute distress on stretcher Head: normocephalic and atraumatic EYES: No injection, discharge or icterus. NECK: Trachea midline. ENT: Mucous membranes pink and moist. LUNGS: Airway patent. No retractions. Breath sounds clear HEART: Regular rate and rhythm. No chest wall tenderness ABDOMEN: Soft with some mild mid abdominal tenderness. No guarding or peritonitis. SKIN: Acyanotic, warm, dry, without rashes EXTREMITIES: Without swelling, tenderness or deformity NEUROLOGICAL: No focal deficits. No aphasia. No facial droop or slurred speech. Ambulatory. EK beats per normal sinus rhythm. No PVC or PAC. No acute ST segment elevation or depression with QTC 467 CONTINUOUS CARDIAC MONITORING: was ordered and showed a heart rate of 60s-80s bpm in normal sinus rhythm Patient's laboratory studies and imaging reviewed. Differential includes Appendicitis, infections, diverticulitis, UTI, obstruction, mesenteric ischemia, aortic pathology, inflammatory bowel disease, renal colic, PUD, pancreatitis, biliary pathology, hernia, volvulus, constipation, as well as other pathologies. IMPRESSION/MEDICAL DECISION MAKING: Blood work here with some mild leukocytosis. No anemia. No significant chemistry abnormalities noted or evidence of hepatitis or pancreatitis. Doubt this is cardiac in nature. Urinalysis with some blood as well as white blood cells leuk esterase. A bit difficult to interpret. She denies urinary sympto ms. Reviewed recent urinary evaluation and she is following up closely with them in the short order. Pathology results seem to indicate that perhaps the patient may have a mild bladder malignancy which they are going to discuss with her. Patient denies nausea currently. Given some IV fluid. CT imaging to evaluate for other intra-abdominal pathology was completed. CT report questions small bowel obstruction. No evidence of perforation by the report. Seem consistent with her symptomatology as it is a risk factors given prior uterine cancer surgery and radiation. She is fairly well-appearing. Discussed with the findings. She is not having nausea now and declined NG tube placement at this point. We will proceed with observation for conservative treatment at this time. Hospitalist contacted. Patient has been on Macrobid as an outpatient and given the urine sample cover ceftriaxone pending culture. DIAGNOSIS: Small bowel obstruction, abdominal pain, nausea and vomiting DISPOSITION: Hospitalist will evaluate Patient was agreeable with this plan. Preliminary Findings Only See Final Report For Complete Findings CT ABDOMEN & PELVIS With Contrast: Comparison to November 29, 2020. The appendix is not visible. No acute inflammatory process is seen adjacent seen in the cecum to suggest acute appendicitis. There are scattered gas fluid levels throughout fluid-filled mildly dilated proximal and mid small bowel. There is a segment of small bowel in the pelvis containing solid-appearing stool beyond which the small bowel is decompressed suggesting intermediate grade distal small bowel obstruction. No signs of bowel perforation or abscess. There is a small amount of free fluid in the pelvis. No pneumoperitoneum. The liver, gallbladder, pancreas, spleen, adrenal glands, and kidneys are unremarkable. The aorta is mildly calcified but nondilated. Mild multilevel degenerative changes are seen throughout the spine. No acute fracture or destructive bone lesion is seen. Radiologist: Kenrick Sullivan MD Study ready at 23:20 and initial results transmitted at 00:22 Past Med/Surg History Medical History (Updated 05/09/22 @ 00:38 by Kenrick Lezama M.D.) Anemia Iron deficiency S/p iron infusion x 3 with heme per 02/2022 PCP note Cyst of kidney, acquired Depression Gastritis History of upper gastrointestinal bleeding Remote hx Hx of cancer of uterus 2001 s/p hysterectomy/chemo/xrt/brachy Hx of migraines Remote hx Hyperlipidemia Hypogammaglobulinemia Per 02/2022 PCP- noted on labs in Jul 2021 with [facility]- follows with heme- under surveillance Hypothyroidism (acquired) Liver lesion, left lobe Under observation Pulmonary nodules Under observation Rheumatoid arthritis On abatacept Steroid long-term use Surgical History History of section x1 History of dilatation and curettage History of esophagogastroduodenoscopy (EGD) (10/2018) History of tonsillectomy and adenoidectomy History of tooth extraction wisdom teeth History of total abdominal hysterectomy and bilateral salpingo-oophorectomy 2000--uterine cancer History of total left knee replacement (~08/03/19) Hx of arthroscopic knee surgery LEFT S/P cataract surgery R eye 02/05/2021 L eye 02/19/2021 DR. Broussard S/P colonoscopy S/P right knee arthroscopy (2020) Family History Grandfather (Maternal) Family hx of colon cancer Diabetes Colorectal cancer Sister Depression Breast cancer Aunt Ovarian cancer paternal, different than uterine cancer aunt Uterine cancer paternal, different than aunt w/ ovarian Grandmother (Maternal) Diabetes Other No family history of adverse response to anesthesia Denies family history of Prostate cancer Myocardial infarction Social History Smoking Status: Former smoker Tobacco Type: Cigarettes Age Started Using Tobacco: 18; Age Quit Using Tobacco: 51; packs per day: 0.10; Second Hand Exposure: No; Hx Alcohol Use: Yes Alcohol type: wine Alcohol Intake Frequency: Monthly or Less Hx Substance Use: No Preferred Language: Icelandic Communication Ability: Effective Visual Impairment: Limited Hearing Ability: Hard of Hearing Shook Splicer Required: No Beliefs That Will Affect Care: None marital status: Current Living Situation: Spouse Current Living Situation Comment: HAS MS current occupational status: retired How many Children do You have: 1 How many Children do You have Comment: One daughter Feels Safe at Home: Yes Childhood Exposure to Second-Hand Smoke: Yes (brothers ) caffeine: No during the past year weight has: decreased > 10 lbs Dental Care, Regularly: Yes Physical Activity Frequency: Daily Physical Activity Frequency Comment: house chores Seatbelt Use: always Sunscreen Use: Yes Assistive Devices: Glasses Allergies Allergies Allergy/AdvReac Type Severity Reaction Status Date / Time No Known Drug Allergies Allergy Verified 04/25/22 06:50 Home Meds Home Medications Medication Instructions Recorded Confirmed calcium carbonate 600 mg calcium 600 mg PO QDD 08/23/18 04/25/22 (1,500 mg) tablet (Calcium) cholecalciferol (vitamin D3) 125 5,000 unit PO HS 08/23/18 04/25/22 mcg (5,000 unit) tablet (Vitamin D3) coenzyme Q10 100 mg capsule (Co 100 mg PO QAM 08/23/18 04/25/22 Q-10) ferrous sulfate 325 mg (65 mg 325 mg PO QDL 08/23/18 04/25/22 iron) tablet (iron) [id number] acid 0.4 1 tab PO QAM 08/23/18 04/25/22 mg-lycopene 300 mcg-lutein 250 mcg tablet (Centrum Silver) vit C,E,zinc,copper-[id number] 250 1 cap PO QAM 08/23/18 04/25/22 mg-lutein 5 mg-zeaxanthin 1 mg capsule (Ocuvite Adult 50 Plus) abatacept (with maltose) 250 mg 1 mg IV MONTHLY 06/16/19 04/25/22 intravenous solution (Orencia (with maltose)) psyllium husk 3.4 gram/5.4 gram 1 tbsp PO QDL 07/13/19 04/25/22 oral powder (Metamucil) coffee extract 100 mg-phosphatidyl 1 cap PO QAM 05/27/21 04/25/22 serine 100 mg capsule (Neuriva Original) prednisone 5 mg tablet 5 mg PO QAM 02/13/22 04/25/22 levothyroxine 75 mcg tablet 75 mcg PO QAM 04/23/22 04/25/22 loperamide 2 mg tablet (Imodium 2 mg PO Q6H PRN Diarrhea 04/23/22 04/25/22 A-D) Previous Rx's Medication Instructions Recorded cyclosporine 0.05 % eye drops in a 1 drp ophthalmic (eye) Q12H #30 ea 08/27/21 dropperette (Restasis) citalopram 10 mg tablet 10 mg PO HS #90 tabs 01/16/22 nitrofurantoin macrocrystal 100 mg 100 mg PO BID 30 days #60 caps 04/07/22 capsule ciprofloxacin HCl 500 mg tablet 500 mg PO BID #6 tabs 04/25/22 (Cipro) folic acid 1 mg tablet 1 mg PO QAM #90 tabs 04/28/22 Results & Data (ED) Vital Signs Vital Signs - 24 hr 05/08/22 19:34 05/08/22 21:00 05/08/22 23:00 Temperature 36.5 C Temperature Source Temporal Artery Scan Pulse Rate 91 H Pulse Rate [Apical] 72 Pulse Rate from SpO2 Sensor Pulse Rhythm [Apical] Regular Pulse Strength [Apical] Normal Respiratory Rate 18 18 Respiratory Effort / Characteristics Non-Labored Spontaneous Respiratory Depth Normal Normal Respiratory Pattern Regular Blood Pressure 116/74 119/60 Blood Pressure [Left Arm] 131/70 Blood Pressure Mean 88 79 Blood Pressure Mean [Left Arm] 90 Blood Pressure Position [Left Arm] Sitting Pulse Oximetry 97 97 Oxygen Delivery Method Room Air Room Air Sepsis New/Unexplained Change in Mental Status N/A Sepsis Action Taken by Nursing No Action Required 05/08/22 23:00 05/08/22 23:30 05/08/22 23:30 Temperature Temperature Source Pulse Rate 77 66 Pulse Rate [Apical] Pulse Rate from SpO2 Sensor 79 66 Pulse Rhythm [Apical] Pulse Strength [Apical] Respiratory Rate 22 Respiratory Effort / Characteristics Respiratory Depth Respiratory Pattern Blood Pressure 118/65 Blood Pressure [Left Arm] Blood Pressure Mean 82 Blood Pressure Mean [Left Arm] Blood Pressure Position [Left Arm] Pulse Oximetry 100 100 Oxygen Delivery Method Sepsis New/Unexplained Change in Mental Status Sepsis Action Taken by Nursing 05/09/22 00:00 05/09/22 00:00 05/09/22 00:30 Temperature Temperature Source Pulse Rate 71 Pulse Rate [Apical] Pulse Rate from SpO2 Sensor 71 Pulse Rhythm [Apical] Pulse Strength [Apical] Respiratory Rate Respiratory Effort / Characteristics Respiratory Depth Respiratory Pattern Blood Pressure 131/71 151/73 H Blood Pressure [Left Arm] Blood Pressure Mean 91 99 Blood Pressure Mean [Left Arm] Blood Pressure Position [Left Arm] Pulse Oximetry 100 Oxygen Delivery Method Sepsis New/Unexplained Change in Mental Status Sepsis Action Taken by Nursing 05/09/22 00:30 Temperature Temperature Source Pulse Rate 81 Pulse Rate [Apical] Pulse Rate from SpO2 Sensor 79 Pulse Rhythm [Apical] Pulse Strength [Apical] Respiratory Rate Respiratory Effort / Characteristics Respiratory Depth Respiratory Pattern Blood Pressure Blood Pressure [Left Arm] Blood Pressure Mean Blood Pressure Mean [Left Arm] Blood Pressure Position [Left Arm] Pulse Oximetry 99 Oxygen Delivery Method Sepsis New/Unexplained Change in Mental Status Sepsis Action Taken by Nursing Laboratory Data Result diagrams: 05/08/22 20:40 05/08/22 20:40 Lab Results 05/08/22 05/08/22 05/08/22 Range/Units 20:40 20:40 20:40 WBC 12.53 H (4.8-10.8) K/ul RBC 4.18 (3.93-5.22) M/uL Hgb 12.4 (12.0-16.0) g/dl Hct 38.9 (34.1-44.9) % MCV 93.1 (80.0-100.0) fL MCH 29.7 (25.0-34.0) pg MCHC 31.9 L (32.0-36.0) g/dL RDW Std Deviation 46.0 (36.4-46.3) fL RDW Coeff of Emely 13.5 (11.5-14.5) % Plt Count 377 (130-400) K/uL MPV 9.6 (9.4-12.3) fL Immature Gran % (Auto) 0.4 % Neut % (Auto) 91.8 % Lymph % (Auto) 3.1 % Winn % (Auto) 4.5 % Eos % (Auto) 0.0 % Baso % (Auto) 0.2 % Neut # (Auto) 11.50 H (1.4-6.5) K/uL Lymph # (Auto) 0.39 L (1.2-3.4) K/uL Winn # (Auto) 0.57 (0.24-0.82) K/uL Eos # (Auto) 0.00 (0-0.50) K/uL Baso # (Auto) 0.02 (0-0.2) K/uL Immature Gran # (Auto) 0.05 H (0.00-0.02) K/uL Sodium 139 (136-145) mmol/L Potassium 4.2 (3.5-5.1) mmol/L Chloride 98 (98-107) mmol/L Carbon Dioxide 31 (21-32) mmol/L Anion Gap 10 (3-11) BUN 14 (6-23) mg/dl Creatinine 0.70 (0.6-1.2) mg/dl Est Cr Clr Drug Dosing 53.1 ml/min Est GFR ( Amer) 99.6 ml/min Est GFR (Non-Af Amer) 86.0 ml/min BUN/Creatinine Ratio 20.0 (10-20) Glucose 141 H (70-99(Fasting)) mg/dl Calcium 9.7 (8.5-10.1) mg/dl Total Bilirubin 1.2 H (0.2-1.0) mg/dl AST 18 (13-39) U/L ALT 15 (7-52) U/L Alkaline Phosphatase 82 (34-104) U/L Total Protein 7.2 (6.0-8.3) gm/dl Albumin 4.2 (3.4-5.0) gm/dl Globulin 3.0 (2.5-4.0) gm/dl Albumin/Globulin Ratio 1.4 (0.9-2) Lipase 30 (11-82) U/L Urine Color Dark Yellow Urine Appearance Cloudy A (Clear) Urine pH 6.5 (4.5-7.5) Ur Specific [place] 1.019 (1.000-1.030) Urine Protein 1+ H (Negative) Urine Glucose (UA) Negative (Negative) Urine Ketones 2+ H (Negative) Urine Blood 3+ H (Negative) Urine Nitrite Negative (Negative) Urine Bilirubin Negative (Negative) Urine Urobilinogen Negative (Negative) Ur Leukocyte Esterase 2+ H (Negative) Urine WBC (Auto) >30 H (0-5) /hpf Urine RBC (Auto) >30 H (0-4) /hpf U Hyaline Cast (Auto) >30 H (0-5) /lpf U Epithel Cells (Auto) >30 H (0-5) /lpf Urine Bacteria (Auto) Negative (Negative) Ur Renal Epithelial Cell 0-5 (0-5) /lpf Urine Crystals Not Reportable Calcium Oxalate Crystal Present A (None Prsent) Urine Mucus Present A (None Prsent) Administered Medications Discontinued Medications Sodium Chloride (Nss 1000ml) 1,000 mls @ 999 mls/hr IV .Q1H1M ONE Stop: 05/08/22 23:54 Last Admin: 05/08/22 23:56 Dose: 999 mls/hr Documented By: APOLINAR Ceftriaxone Sodium (Rocephin) 1,000 mg in 50 mls @ 100 mls/hr IV NOW STA Stop: 05/09/22 01:06 Last Admin: 05/09/22 00:57 Dose: 100 mls/hr Documented By: SOFIE Ioversol (Optiray 300 500ml) 87 ml IV ONCE ONE Stop: 05/08/22 23:13 Last Admin: 05/08/22 23:12 Dose: 87 ml Documented By: [facility] Discharge Plan Visit Data Chief Complaint: Vomiting Stated Complaint: ABDOMINAL PAIN,VOMITING, REF BY URGENT CARE ED Provider: Kenrick Lezama Discharge Problem: SBO (small bowel obstruction), Abdominal pain, Nausea & vomiting, Acute UTI Patient Disposition: Being Evaluated by Hospitalist Forms Stand Alone Forms: [facility] Prescriptions Prescriptions: No Action citalopram 10 mg tablet 10 mg PO HS Qty: 90 1RF folic acid 1 mg tablet 1 mg PO QAM Qty: 90 1RF prednisone 5 mg tablet 5 mg PO QAM Orencia (with maltose) 250 mg recon soln 1 mg IV MONTHLY Label Comments: 25 MG/ML IV ONCE, MONTHLY Restasis 0.05 % dropperette 1 drp ophthalmic (eye) Q12H Qty: 30 2RF nitrofurantoin macrocrystal 100 mg capsule 100 mg PO BID 30 Days Qty: 60 11RF Rx Instructions: must administer with a meal/food calcium carbonate [Calcium 600] 600 mg calcium (1,500 mg) Tablet 600 mg PO QDD ferrous sulfate [iron] 325 mg (65 mg iron) Tablet 325 mg PO QDL coenzyme Q10 [Co Q-10] 100 mg Capsule 100 mg PO QAM Centrum Silver 0.4-300-250 mg-mcg-mcg Tablet 1 tab PO QAM cholecalciferol (vitamin D3) [Vitamin D3] 5,000 unit Tablet 5,000 unit PO HS Ocuvite Adult 50 Plus 250-5-1 mg Capsule 1 cap PO QAM Metamucil 3.4 gram/5.4 gram Powder 1 tbsp PO QDL Neuriva Original 100-100 mg Capsule 1 cap PO QAM loperamide [Imodium A-D] 2 mg Tablet 2 mg PO Q6H PRN (Reason: Diarrhea) levothyroxine 75 mcg tablet 75 mcg PO QAM ciprofloxacin HCl [Cipro] 500 mg tablet 500 mg PO BID Qty: 6 0RF Referrals Referrals: Kathryn Benson, [Primary Care Provider] - : Abdominal pain Qualifiers: Abdominal location: generalized Qualified Code(s): R10.84 - Generalized abdominal pain Nausea & vomiting Qualifiers: Vomiting type: unspecified Qualified Code(s): R11.2 - Nausea with vomiting, unspecified
[2022-05-08 21:49] LABS: Hematocrit (blood only) 38.9 % (34.1-44.9); Hemoglobin 12.4 g/dl (12.0-16.0); Mean Corpuscular Hemoglobin 29.7 pg (25.0-34.0); Mean Corpuscular Hgb Conc 31.9 g/dL (32.0-36.0); Mean Corpuscular Volume 93.1 fL (80.0-100.0); Mean Platelet Volume 9.6 fL (9.4-12.3); Platelet Count 377 K/uL (130-400); RDW Coefficient of Variation 13.5 % (11.5-14.5); Red Blood Count 4.18 M/uL (3.93-5.22); White Blood Count 12.53 K/ul (4.8-10.8)
[2022-05-08] MEDS ORDERED: SODIUM CHLORIDE 0.9% 1000ML 1,000 ML IV ONE (22:54)
[2022-05-08] MEDS ORDERED: OPTIRAY 300 500mL IV ONE (23:12)
[2022-05-08 23:48] LABS: Basophils # (auto) 0.02 K/uL (0-0.2); Basophils % (auto) 0.2 %; Immature Granulocytes # (auto) 0.05 K/uL (0.00-0.02); Immature Granulocytes % (auto) 0.4 %; Lymphocytes # (auto) 0.39 K/uL (1.2-3.4); Lymphocytes % (auto) 3.1 %; Monocytes # (auto) 0.57 K/uL (0.24-0.82); Monocytes % (auto) 4.5 %; Neutrophils % (auto) 91.8 %
[2022-05-09] MEDS ORDERED: cefTRIAXone SODIUM 1,000 MG/50 ML BAG IV STA (00:37)
--- NOTE | 2022-05-09 01:29 | History & Physical Report ---
Date of Service May 09, 2022 Assessment & Plan (1) SBO (small bowel obstruction): Plan: Patient presents with 2 days of abdominal pain, nausea and bilious vomiting. CT suggestive of moderate grade SBO. Nausea and pain now controlled. No abdominal distention. Patient with h/o as well as SHANNEN-BSO with radiation for uterine cancer in 2000 -Admit to medical -Keep NPO -Zofran PRN nausea -Morphine PRN pain -IVF and electrolyte repletion -General Surgery consultation appreciated (2) Acute UTI: Plan: UA suggestive of UTI. Patient with recent cystoscopy for workup of intermittent hematuria and bladder tumor. Patient with radiation cystitis as well as a papillar appearing tumor from the right side of the trigone. 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 Patient has not yet been made aware of these results -Ceftriaxone 1gm IV daily -Follow cultures (3) Hypothyroidism (acquired): Plan: Chronic. -Continue Synthroid 75mcg po daily -Check TSH with AM lab (4) Depression: Plan: Chronic. Stable -Continue Citalopram 10mg po daily (5) Rheumatoid arthritis: Plan: Chronic. Well controlled -Continue Prednisone 5mg po daily F/E/N - LR at 80mL/hr, monitor electrolytes, NPO Ppx - Lovenox 30 Code - Full Dispo - Admit to medical History of Present Illness Chief Complaint: abdominal pain Primary Care Provider: DO Humaira Knight Alyssarenatazan is a 71yo female with remote history of Uterine CA s/p hysterectomy, RA on Prednisone, Hypothyroidism presenting with abdominal pain. Patient reports two days of diffuse abdominal pain, most in lower abdomen. She has had nausea with bilious emesis as well. Patient with chronic diarrhea - no diarrhea x 2 days, however. She did pass a small BM this AM. No flatus. No fever, chills, chest pain, cough, SOB. No additional complaints at this time. No prior history of SBO In the ER patient is afebrile, HD stable, NAD. Workup revealed SBO No nausea or abdominal distention noted. ER Course: Ceftriaxone Allergies Allergy/AdvReac Type Severity Reaction Status Date / Time No Known Drug Allergies Allergy NKDA Verified 05/09/22 01:18 Home Medications Medication Instructions Recorded Confirmed Type calcium carbonate 600 mg calcium 600 mg PO QDD 12/10/18 08/12/22 History (1,500 mg) tablet (Calcium) cholecalciferol (vitamin D3) 125 5,000 unit PO HS 08/23/18 04/25/22 History mcg (5,000 unit) tablet (Vitamin D3) coenzyme Q10 100 mg capsule (Co 100 mg PO QAM 08/23/18 04/25/22 History Q-10) ferrous sulfate 325 mg (65 mg 325 mg PO QDL 08/23/18 04/25/22 History iron) tablet (iron) npothnga-lgq-xsury acid 0.4 1 tab PO QAM 08/23/18 04/25/22 History mg-lycopene 300 mcg-lutein 250 mcg tablet (Centrum Silver) vit C,E,zinc,copper-ywgji5v 250 1 cap PO QAM 08/23/18 04/25/22 History mg-lutein 5 mg-zeaxanthin 1 mg capsule (Ocuvite Adult 50 Plus) psyllium husk 3.4 gram/5.4 gram 1 tbsp PO QDL 07/13/19 04/25/22 History oral powder (Metamucil) coffee extract 100 mg-phosphatidyl 1 cap PO QAM 05/27/21 04/25/22 History serine 100 mg capsule (Neuriva Original) cyclosporine 0.05 % eye drops in a 1 drp ophthalmic (eye) Q12H #30 ea 08/27/21 04/25/22 Rx dropperette (Restasis) citalopram 10 mg tablet 10 mg PO HS #90 tabs 01/16/22 04/25/22 Rx prednisone 5 mg tablet 5 mg PO QAM 02/13/22 04/25/22 History nitrofurantoin macrocrystal 100 mg 100 mg PO BID 30 days #60 caps 04/07/22 04/25/22 Rx capsule levothyroxine 75 mcg tablet 75 mcg PO QAM 04/23/22 04/25/22 History loperamide 2 mg tablet (Imodium 2 mg PO Q6H PRN Diarrhea 04/23/22 04/25/22 History A-D) folic acid 1 mg tablet 1 mg PO QAM #90 tabs 04/28/22 Rx Past Med/Surg History Medical History Anemia Iron deficiency S/p iron infusion x 3 with heme per 02/2022 PCP note Cyst of kidney, acquired Depression Gastritis History of upper gastrointestinal bleeding Remote hx Hx of cancer of uterus 2001 s/p hysterectomy/chemo/xrt/brachy Hx of migraines Remote hx Hyperlipidemia Hypogammaglobulinemia Per 02/2022 PCP- noted on labs in Jul 2021 with mspike- follows with heme- under surveillance Hypothyroidism (acquired) Liver lesion, left lobe Under observation Pulmonary nodules Under observation Rheumatoid arthritis On abatacept Steroid long-term use Surgical History History of section x1 History of dilatation and curettage History of esophagogastroduodenoscopy (EGD) (10/2018) History of tonsillectomy and adenoidectomy History of tooth extraction wisdom teeth History of total abdominal hysterectomy and bilateral salpingo-oophorectomy 2000--uterine cancer History of total left knee replacement (~08/03/19) Hx of arthroscopic knee surgery LEFT S/P cataract surgery R eye 02/05/2021 L eye 02/19/2021 DR. Broussard S/P colonoscopy S/P right knee arthroscopy (2020) Family History Grandfather (Maternal) Family hx of colon cancer Diabetes Colorectal cancer Sister Depression Breast cancer Aunt Ovarian cancer paternal, different than uterine cancer aunt Uterine cancer paternal, different than aunt w/ ovarian Grandmother (Maternal) Diabetes Other No family history of adverse response to anesthesia Denies family history of Prostate cancer Myocardial infarction Social History Smoking Status: Former smoker Tobacco Type: Cigarettes Age Started Using Tobacco: 18; Age Quit Using Tobacco: 51; packs per day: 0.10; Second Hand Exposure: No; Hx Alcohol Use: Yes Alcohol type: wine Alcohol Intake Frequency: Monthly or Less Hx Substance Use: No Preferred Language: Martiniquais Communication Ability: Effective Visual Impairment: Limited Hearing Ability: Hard of Hearing Making Line Worker Required: No Beliefs That Will Affect Care: None marital status: Current Living Situation: Spouse Current Living Situation Comment: HAS MS current occupational status: retired How many Children do You have: 1 How many Children do You have Comment: One daughter Feels Safe at Home: Yes Childhood Exposure to Second-Hand Smoke: Yes (brothers ) caffeine: No during the past year weight has: decreased > 10 lbs Dental Care, Regularly: Yes Physical Activity Frequency: Daily Physical Activity Frequency Comment: house chores Seatbelt Use: always Sunscreen Use: Yes Assistive Devices: Glasses Review of Systems Review of Systems: All systems reviewed & are unremarkable except as noted in HPI & below Physical Exam Physical Exam: General: patient resting comfortably, NAD, non-toxic in appearance, AA&O x 4 Skin: warm, dry, intact, no rashes or lesions HEENT: NC/AT, PERRL, EOMI, anicteric sclera, conjunctiva without injection, external ear normal to inspection and nontender, nares patent, moist mucus membranes, dentition intact, no oropharyngeal lesions, neck supple, trachea midline, no LAD, no thyromegaly, no JVD Heart: +S1/S2, regular, no m/r/g Lungs: equal air entry bilaterally, no rales/rhonchi/wheezes Abd: +BS diminished, soft, tender in lower abdomen with deep palpation, no rebound/guarding, ND, no masses/organomegaly/ascites Ext: warm, 2+ pulses in UE/LE bilaterally, no clubbing/cyanosis or edema Neuro: nonfocal, patient AA&O x 4, speech intact, no facial droop, moving all extremities on command with equal strength 5/5 Results & Data Results & Data ([facility]) Vital Signs (Past 12 Hours) Vital Signs Temp Pulse Pulse Resp BP BP Pulse Ox 05/09/22 00:30 81 99 05/09/22 00:30 151/73 H 05/09/22 00:00 71 100 05/09/22 00:00 131/71 05/08/22 23:30 118/65 05/08/22 23:30 66 100 05/08/22 23:00 77 22 100 05/08/22 23:00 119/60 05/08/22 21:00 72 18 131/70 97 05/08/22 19:34 36.5 C 91 H 18 116/74 97 O2 Del Method 05/09/22 00:30 05/09/22 00:30 05/09/22 00:00 05/09/22 00:00 05/08/22 23:30 05/08/22 23:30 05/08/22 23:00 05/08/22 23:00 05/08/22 21:00 Room Air 05/08/22 19:34 Room Air Laboratory Results Laboratory Results WBC 12.53 K/ul (4.8-10.8) H 05/08/22 20:40 RBC 4.18 M/uL (3.93-5.22) 05/08/22 20:40 Hgb 12.4 g/dl (12.0-16.0) 05/08/22 20:40 Hct 38.9 % (34.1-44.9) 05/08/22 20:40 MCV 93.1 fL (80.0-100.0) 05/08/22 20:40 MCH 29.7 pg (25.0-34.0) 05/08/22 20:40 MCHC 31.9 g/dL (32.0-36.0) L 05/08/22 20:40 RDW Std Deviation 46.0 fL (36.4-46.3) 05/08/22 20:40 RDW Coeff of Emely 13.5 % (11.5-14.5) 05/08/22 20:40 Plt Count 377 K/uL (130-400) 05/08/22 20:40 MPV 9.6 fL (9.4-12.3) 05/08/22 20:40 Immature Gran % (Auto) 0.4 % 05/08/22 20:40 Neut % (Auto) 91.8 % 05/08/22 20:40 Lymph % (Auto) 3.1 % 05/08/22 20:40 Allen % (Auto) 4.5 % 05/08/22 20:40 Eos % (Auto) 0.0 % 05/08/22 20:40 Baso % (Auto) 0.2 % 05/08/22 20:40 Neut # (Auto) 11.50 K/uL (1.4-6.5) H 05/08/22 20:40 Lymph # (Auto) 0.39 K/uL (1.2-3.4) L 05/08/22 20:40 Allen # (Auto) 0.57 K/uL (0.24-0.82) 05/08/22 20:40 Eos # (Auto) 0.00 K/uL (0-0.50) 05/08/22 20:40 Baso # (Auto) 0.02 K/uL (0-0.2) 05/08/22 20:40 Immature Gran # (Auto) 0.05 K/uL (0.00-0.02) H 05/08/22 20:40 Sodium 139 mmol/L (136-145) 05/08/22 20:40 Potassium 4.2 mmol/L (3.5-5.1) 05/08/22 20:40 Chloride 98 mmol/L (98-107) 05/08/22 20:40 Carbon Dioxide 31 mmol/L (21-32) 05/08/22 20:40 Anion Gap 10 (3-11) 05/08/22 20:40 BUN 14 mg/dl (6-23) 05/08/22 20:40 Creatinine 0.70 mg/dl (0.6-1.2) 05/08/22 20:40 Est Cr Clr Drug Dosing 53.1 ml/min 05/08/22 20:40 Est GFR ( Amer) 99.6 ml/min 05/08/22 20:40 Est GFR (Non-Af Amer) 86.0 ml/min 05/08/22 20:40 BUN/Creatinine Ratio 20.0 (10-20) 05/08/22 20:40 Glucose 141 mg/dl (70-99(Fasting)) H 05/08/22 20:40 Calcium 9.7 mg/dl (8.5-10.1) 05/08/22 20:40 Total Bilirubin 1.2 mg/dl (0.2-1.0) H 05/08/22 20:40 AST 18 U/L (13-39) 05/08/22 20:40 ALT 15 U/L (7-52) 05/08/22 20:40 Alkaline Phosphatase 82 U/L (34-104) 05/08/22 20:40 Total Protein 7.2 gm/dl (6.0-8.3) 05/08/22 20:40 Albumin 4.2 gm/dl (3.4-5.0) 05/08/22 20:40 Globulin 3.0 gm/dl (2.5-4.0) 05/08/22 20:40 Albumin/Globulin Ratio 1.4 (0.9-2) 05/08/22 20:40 Lipase 30 U/L (11-82) 05/08/22 20:40 Urine Color Dark Yellow 05/08/22 20:40 Urine Appearance Cloudy (Clear) A 05/08/22 20:40 Urine pH 6.5 (4.5-7.5) 05/08/22 20:40 Ur Specific [place] 1.019 (1.000-1.030) 05/08/22 20:40 Urine Protein 1+ (Negative) H 05/08/22 20:40 Urine Glucose (UA) Negative (Negative) 05/08/22:40 Urine Ketones 2+ (Negative) H 05/08/22:40 Urine Blood 3+ (Negative) H 05/08/22 20:40 Urine Nitrite Negative (Negative) 05/08/22 20:40 Urine Bilirubin Negative (Negative) 05/08/22:40 Urine Urobilinogen Negative (Negative) 05/08/22 20:40 Ur Leukocyte Esterase 2+ (Negative) H 05/08/22 20:40 Urine WBC (Auto) >30 /hpf (0-5) H 05/08/22 20:40 Urine RBC (Auto) >30 /hpf (0-4) H 05/08/22 20:40 U Hyaline Cast (Auto) >30 /lpf (0-5) H 05/08/22 20:40 U Epithel Cells (Auto) >30 /lpf (0-5) H 05/08/22 20:40 Urine Bacteria (Auto) Negative (Negative) 05/08/22 20:40 Ur Renal Epithelial Cell 0-5 /lpf (0-5) 05/08/22 20:40 Urine Crystals Not Reportable 05/08/22 20:40 Calcium Oxalate Crystal Present (None Prsent) A 05/08/22 20:40 Urine Mucus Present (None Prsent) A 05/08/22 20:[address] Abdomen and Pelvis with Contrast: Per STAT-rad - The appendix is not visible. No acute inflammatory process is seen adjacent to th ececum to suggest acute appendicitis. There are scattered basim fluid levels throughout fluid- filled mildly dilated proxiimal and mid small bowel. There is a segment of small bowel in the pelvis containing solid appearing stool beyond which the small bowel is decompressed suggesting intermediate grade distal SBO. NO signs of bowel performatino or abscess. There is a small amount of free fluid in the pelvis. No pneumoperitoneum. The liver, GB, pancreas, spleen, adrenal glands and kidneys are unremarkable. The aorta is mildly calcified but nondilated. Mild multilevel degenerative changes are seen throughout the spine. No acute fracture or destructive bone lesion is seen. Code Status & VTE Plan VTE Prophylaxis Plan VTE Prophylaxis will be ordered: Yes PG Care Time/CCT Total # of Minutes Spent Total Time Spent with Patient: Total time spent is greater than 50% in coordination of care (as documented) at patient's floor/unit and/or counseling patient: Coding Level of Care Code 97368 Initial Inpt Care Lvl 3 Diagnoses SBO (small bowel obstruction) K56.609 Acute UTI N39.0 Hypothyroidism (acquired) E03.9 Depression F32.9 Rheumatoid arthritis M06.9
[2022-05-09] MEDS ORDERED: MoRPHine SULFATE 4 MG/ML 1 ML CARP\\VIAL IV PRN (03:10)
[2022-05-09] MEDS ORDERED: MoRPHine SULFATE 2 MG/ML CARP IV PRN (03:10)
[2022-05-09] MEDS ORDERED: ONDANSETRON INJ 2 MG/ML 2 ML VIAL IV PRN (03:10)
[2022-05-09 03:30] LABS: Magnesium 2.1 mg/dl (1.7-2.4); Phosphorus 4.3 mg/dl (2.5-4.9)
[2022-05-09] MEDS: LACTATED RINGER'S 1,000 ML IV SCH ×2 (03:36→15:45)
[2022-05-09] MEDS: LEVOTHYROXINE SODIUM 75 MCG TABLET PO SCH (05:49)
--- NOTE | 2022-05-09 07:47 | CT Scan Report ---
ABDOMEN AND PELVIS CT WITH IV CONTRAST CT DOSE: 249.20 mGy.cm HISTORY: vomiting TECHNIQUE: Multiaxial CT images of the abdomen and pelvis were performed following the use of intrave nous contrast. A dose lowering technique was utilized adhering to the principles of ALARA. COMPARISON STUDY: Abdomen and pelvis CT 11/29/2020. FINDINGS: The lung bases are clear. No pneumoperitoneum. No pneumatosis. No fractures within the visu alized osseous structures. The liver, gallbladder, spleen, adrenal glands, and pancreas are within no rmal limits. A few small hypodense lesions within the kidneys remain unchanged. These measure up to 1 2 mm within the lower pole the right kidney. These favor cysts. No hydronephrosis. The main portal ve in is patent. Normal caliber abdominal aorta. No retroperitoneal lymphadenopathy. The bladder is not well-distended. Small amount of pelvic free fluid. Prior hysterectomy. The visualized appendix is unr emarkable. There are multiple dilated and fluid-filled loops of proximal to mid small bowel with a tr ansition point within the left deep pelvis at the distal ileum best seen on image 294. The small cami l loops are dilated up to 3.6 cm. Findings are consistent with a high-grade small bowel obstruction g iven the tight transition point within the deep pelvis. Small amount of fluid adjacent to the dilated loops of small bowel. IMPRESSION: 1. High-grade small bowel obstruction with the transition point located at the distal ileum within th e left deep pelvis as described above. 2. Small amount of ascites. 3. No pneumoperitoneum or pneumatosis identified. 4. Additional findings as described above. ACT 112: Negative or not required by law. Electronically signed by: Dimitrios Ramey M.D. 05/09/2022 7:46 AM
--- NOTE | 2022-05-09 08:20 | Electrocardiogram Report ---
Test Reason : Blood Pressure : / mmHG Vent. Rate : 068 BPM Atrial Rate : 068 BPM P-R Int : 140 ms QRS Dur : 082 ms QT Int : 440 ms P-R-T Axes : 080 064 052 degrees QTc Int : 467 ms Normal sinus rhythm Normal ECG When compared with ECG of 23-APR-2022 12:02, No significant change was found Confirmed by Rick Lim ([id number]) on 05/09/2022 8:19:39 AM Referred By: REFERRED SELF Confirmed By:Rick Lim
[2022-05-09] MEDS: ENOXAPARIN INJ 30 MG/0.3 ML SYR SQ SCH (08:58)
[2022-05-09] MEDS: predniSONE 5 MG TAB PO SCH (10:13)
[2022-05-09] MEDS: CITALOPRAM 20 MG TAB PO SCH (21:23)
[2022-05-10] MEDS: cefTRIAXone SODIUM 1,000 MG in DEXTROSE 5% 50 ML IV SCH (05:37)
[2022-05-10] MEDS: LEVOTHYROXINE SODIUM 75 MCG TABLET PO SCH (05:39)
[2022-05-10] MEDS: predniSONE 5 MG TAB PO SCH (07:29)
[2022-05-10 08:04] LABS: Basophils # (auto) 0.01 K/uL (0-0.2); Basophils % (auto) 0.2 %; Eosinophils # (auto) 0.05 K/uL (0-0.50); Eosinophils % (auto) 1.2 %; Hematocrit (blood only) 30.3 % (34.1-44.9); Hemoglobin 9.8 g/dl (12.0-16.0); Immature Granulocytes # (auto) 0.02 K/uL (0.00-0.02); Immature Granulocytes % (auto) 0.5 %; Lymphocytes # (auto) 0.64 K/uL (1.2-3.4); Lymphocytes % (auto) 15.4 %; Mean Corpuscular Hemoglobin 29.7 pg (25.0-34.0); Mean Corpuscular Hgb Conc 32.3 g/dL (32.0-36.0); Mean Corpuscular Volume 91.8 fL (80.0-100.0); Mean Platelet Volume 9.3 fL (9.4-12.3); Monocytes % (auto) 9.6 %; Neutrophils # (auto) 3.04 K/uL (1.4-6.5); Neutrophils % (auto) 73.1 %; Platelet Count 259 K/uL (130-400); RDW Coefficient of Variation 13.3 % (11.5-14.5); RDW Standard Deviation 45.7 fL (36.4-46.3); White Blood Count 4.16 K/ul (4.8-10.8)
[2022-05-10] MEDS: ENOXAPARIN INJ 30 MG/0.3 ML SYR SQ SCH (08:06)
[2022-05-10 08:53] LABS: Albumin Level 3.3 gm/dl (3.4-5.0); BUN Creatinine Ratio 14.6 (10-20); Bilirubin Direct 0.1 mg/dl (0-0.2); Bilirubin,Total 0.7 mg/dl (0.2-1.0); Calcium 8.3 mg/dl (8.5-10.1); Creatinine Clr Calc Pharmacy 76.3 ml/min; Est GFR (Non-African American) 96.6 ml/min; Potassium 3.5 mmol/L (3.5-5.1); Total Protein 5.6 gm/dl (6.0-8.3)
[2022-05-10] MEDS: SODIUM CHLORIDE 0.9% 1000ML 1,000 ML IV SCH (16:31)
--- NOTE | 2022-05-10 18:32 | XRay Report ---
KUB CLINICAL HISTORY: Enteric tube placement. FINDINGS: An AP, portable, upright view of the lower chest and upper abdomen is correlated with abdom inal CT dated 05/08/2022. An enteric tube has been placed. The tip projects below the diaphragm over t he mid stomach. There is gaseous distention of the small bowel loops seen in the upper abdomen corres ponding to patient's known bowel obstruction. No evidence of intraperitoneal free air is seen. The cristina ng bases are clear as imaged. IMPRESSION: 1. An enteric tube has been placed as above. 2. Persistent small bowel obstruction. Electronically signed by: Dustin Weems M.D. 05/10/2022 6:30 PM
[2022-05-10] MEDS ORDERED: CHLORASEPTIC 1.4% SOLN 180 ML BTL MT PRN (19:09)
[2022-05-10] MEDS: CITALOPRAM 20 MG TAB PO SCH (20:55)
--- NOTE | 2022-05-10 21:58 | Surgery Consultation ---
Date of Consultation May 10, 2022 Assessment & Plan (1) SBO (small bowel obstruction): Patient has been admitted on the hospitalist service. We recommend proceeding as follows: Provide analgesics Provide antiemetics Continue n.p.o. status Hydration measures with IV fluids to be employed Continue NG tube for the present time I discussed with the patient that the most common cause of small bowel obstruction is adhesions and this may be the case with her due to her previously noted abdominal surgeries. It may also be related to previous radiation therapy. At the present time the patient's abdominal exam is largely benign. I do not feel she requires an emergent operation. I discussed with her that we will keep the NG tube in place until she has return of bowel function at which time the NG tube can then be removed and we will consider advancing her diet beginning with clear liquids. I also discussed with the patient that if she does not have return of GI function by 05/12/2022 consideration may be given to performing a contrast study such as a small bowel follow-through. Supervising Physician Co-Signing Physician Notes I personally saw and evaluated the patient with Francisco Javier Leung PA-C and agree with the assessment and plan. 72-year-old female with small bowel obstruction, history of uterine cancer status post total abdominal hysterectomy in 2000 with subsequent pelvic radiation CT images and results personally viewed by me She has been admitted by the medical team and NG tube placed We will keep her n.p.o. for today as she has no return of bowel function yet She has no signs of any mesenteric ischemia, no plans for exploration at this time Will follow History of Present Illness Reason for Consultation: Small bowel obstruction Attending Physician: Tavares Paris History of Present Illness This is a 72-year-old female who presented to [facility] emergency department on 05/08/2022 secondary to abdominal pain that developed on 05/07/2022. Patient noted that she had some mid abdominal discomfort described as a cramping pain that was nonradiating near her umbilicus. She did have some associated nausea and vomiting. She denies any fevers, shakes, or chills. She denies any hematemesis. Patient does note that she has had abdominal surgeries in the form of a as well as a hysterectomy. She denies any prior history of small bowel obstruction. She does note that she has had a history of radiation therapy secondary to uterine cancer. Since arrival to the hospital the patient has had labs and imaging which I independent reviewed. CT scan of the abdomen pelvis on 05/08/2022 that showed evidence of a high-grade small bowel obstruction with a transition point near the distal ileum. No pneumatosis or pneumoperitoneum was noted. Patient also had a KUB on 05/10/2022 that showed persistent small bowel obstruction with interval placement of an NG tube. Patient's most recent labs were from today that showed a white blood cell count of 4.1. Hemoglobin and hematocrit were 9.8 and 30.3. Platelet count was normal. Chemistry profile showed sodium, potassium, and BUN were normal her creatinine was low at 0.4. Since arrival to the hospital the patient says that she has only had some minor abdominal pain near the umbilicus. Since arrival to the hospital she has not had any further nausea or vomiting but she is also not passed any flatus or had any bowel movements. Because she is not had any evidence of GI function return and NG tube was placed earlier today. At the time of my interview the patient was resting comfortably in bed and she was in no distress Allergies Allergy/AdvReac Type Severity Reaction Status Date / Time No Known Drug Allergies Allergy NKDA Verified 05/09/22 01:18 Home Medications Medication Instructions Recorded Confirmed Type calcium carbonate 600 mg calcium 600 mg PO QDD 08/23/18 05/09/22 History (1,500 mg) tablet (Calcium) cholecalciferol (vitamin D3) 125 5,000 unit PO HS 08/23/18 05/09/22 History mcg (5,000 unit) tablet (Vitamin D3) coenzyme Q10 100 mg capsule (Co 100 mg PO QAM 08/23/18 05/09/22 History Q-10) ferrous sulfate 325 mg (65 mg 325 mg PO QDL 08/23/18 05/09/22 History iron) tablet (iron) bdvhjfha-cra-wkrux acid 0.4 1 tab PO QAM 08/23/18 05/09/22 History mg-lycopene 300 mcg-lutein 250 mcg tablet (Centrum Silver) vit C,E,zinc,copper-gsbnd7w 250 1 cap PO QAM 08/23/18 05/09/22 History mg-lutein 5 mg-zeaxanthin 1 mg capsule (Ocuvite Adult 50 Plus) psyllium husk 3.4 gram/5.4 gram 1 tbsp PO QDL 07/13/19 05/09/22 History oral powder (Metamucil) coffee extract 100 mg-phosphatidyl 1 cap PO QAM 05/27/21 05/09/22 History serine 100 mg capsule (Neuriva Original) cyclosporine 0.05 % eye drops in a 1 drp ophthalmic (eye) Q12H #30 ea 08/27/21 05/09/22 Rx dropperette (Restasis) citalopram 10 mg tablet 10 mg PO HS #90 tabs 01/16/22 05/09/22 Rx prednisone 5 mg tablet 5 mg PO QAM 02/13/22 05/09/22 History nitrofurantoin macrocrystal 100 mg 100 mg PO BID 30 days #60 caps 04/07/22 05/09/22 Rx capsule levothyroxine 75 mcg tablet 75 mcg PO QAM 04/23/22 05/09/22 History loperamide 2 mg tablet (Imodium 2 mg PO Q6H PRN Diarrhea 04/23/22 05/09/22 History A-D) folic acid 1 mg tablet 1 mg PO QAM #90 tabs 04/28/22 05/09/22 Rx Patient History Medical History Anemia Iron deficiency S/p iron infusion x 3 with heme per 02/2022 PCP note Cyst of kidney, acquired Depression Gastritis History of upper gastrointestinal bleeding Remote hx Hx of cancer of uterus 2001 s/p hysterectomy/chemo/xrt/brachy Hx of migraines Remote hx Hyperlipidemia Hypogammaglobulinemia Per 02/2022 PCP- noted on labs in Jul 2021 with mspike- follows with heme- under surveillance Hypothyroidism (acquired) Liver lesion, left lobe Under observation Pulmonary nodules Under observation Rheumatoid arthritis On abatacept Steroid long-term use Surgical History History of section x1 History of dilatation and curettage History of esophagogastroduodenoscopy (EGD) (10/2018) History of tonsillectomy and adenoidectomy History of tooth extraction wisdom teeth History of total abdominal hysterectomy and bilateral salpingo-oophorectomy 2000--uterine cancer History of total left knee replacement (~08/03/19) Hx of arthroscopic knee surgery LEFT S/P cataract surgery R eye 02/05/2021 L eye 02/19/2021 DR. Broussard S/P colonoscopy S/P right knee arthroscopy (2020) Family History Grandfather (Maternal) Family hx of colon cancer Diabetes Colorectal cancer Sister Depression Breast cancer Aunt Ovarian cancer paternal, different than uterine cancer aunt Uterine cancer paternal, different than aunt w/ ovarian Grandmother (Maternal) Diabetes Other No family history of adverse response to anesthesia Denies family history of Prostate cancer Myocardial infarction Social History Smoking Status: Former smoker Tobacco Type: Cigarettes Age Started Using Tobacco: 18; Age Quit Using Tobacco: 51; packs per day: 0.10; Second Hand Exposure: No; Hx Alcohol Use: No Hx Substance Use: No Preferred Language: Congolese Communication Ability: Effective Visual Impairment: Limited Hearing Ability: Hard of Hearing Inspector Tester Sorter Required: No Beliefs That Will Affect Care: None marital status: Current Living Situation: Spouse Current Living Situation Comment: HAS MS current occupational status: retired How many Children do You have: 1 How many Children do You have Comment: One daughter Other Information That Helps Us Care for You: No Feels Safe at Home: Yes Childhood Exposure to Second-Hand Smoke: Yes (brothers ) caffeine: No during the past year weight has: decreased > 10 lbs Dental Care, Regularly: Yes Physical Activity Frequency: Daily Physical Activity Frequency Comment: house chores Seatbelt Use: always Sunscreen Use: Yes Assistive Devices: Glasses Review of Systems Constitutional: no fever and no chills Eyes: no eye pain Ear, Nose, Mouth, Throat: no hearing loss Respiratory: no cough and no dyspnea Cardiovascular: no chest pain Gastrointestinal: as per Subjective / HPI, + abdominal pain, + nausea and + vomiting Genitourinary: no dysuria Musculoskeletal: no back pain Integumentary: no rash Neurologic: no localized weakness Physical Exam Constitutional: WD/WN, vitals as above Eyes: no conjunctival abnormality ENMT: Ears: no hearing impairment Mouth: no oropharynx abnormality Neck: trachea midline Respiratory: normal respiratory effort; no respiratory distress and no labored breathing Cardiovascular: Rate/Rhythm: regular rate and regular rhythm Gastrointestinal (Abdomen): Abdomen is soft, nondistended, nonrigid. Bowel sounds are present. There is minor pain with palpation just to the left of the umbilicus without rebound tenderness or guarding. I would not appreciate any hernias on palpation of her abdomen. Musculoskeletal: No calf tenderness Skin: no rashes Neurologic: moves all extremities Psychiatric: A+Ox3, euthymic affect Results & Data ([facility]) Vital Signs (Past 12 Hours) Vital Signs Temp Pulse Resp BP Pulse Ox O2 Del Method 05/10/22 16:00 36.6 C 95 H 20 102/71 98 Room Air PG Care Time/CCT Total # of Minutes Spent Total Time Spent with Patient: Total time spent is greater than 50% in coordination of care (as documented) at patient's floor/unit and/or counseling patient: Coding Level of Care Code 95629 Inpt Consult Level 5 Diagnoses SBO (small bowel obstruction) K56.609
--- NOTE | 2022-05-10 22:05 | Hospitalist Progress Note ---
Date of Service May 10, 2022 Assessment & Plan (1) SBO (small bowel obstruction): Plan: Patient presents with 2 days of abdominal pain, nausea and bilious vomiting. CT suggestive of moderate grade SBO. Nausea and pain now controlled. No abdominal distention. Patient with h/o as well as SHANNEN-BSO with radiation for uterine cancer in 2000 -Admit to medical -Keep NPO -discussed about NG tube, given lack of gas, and BM. -Zofran PRN nausea -Morphine PRN pain -IVF and electrolyte repletion -General Surgery consultation appreciated (2) Acute UTI: Plan: UA suggestive of UTI. Patient with recent cystoscopy for workup of intermittent hematuria and bladder tumor. Patient with radiation cystitis as well as a papillar appearing tumor from the right side of the trigone. 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 Patient has not yet been made aware of these results -Ceftriaxone 1gm IV daily -Follow cultures (3) Hypothyroidism (acquired): Plan: Chronic. -Continue Synthroid 75mcg po daily -Check TSH with AM lab (4) Depression: Plan: Chronic. Stable -Continue Citalopram 10mg po daily (5) Rheumatoid arthritis: Plan: Chronic. Well controlled -Continue Prednisone 5mg po daily Ppx - Lovenox 30 Code - Full Dispo - Admit to medical Admission and Anticipated Discharge Date Admission Date: May 09, 2022 Subjective 72 yo female reports feeling better, Review of Systems Review of Systems: All systems reviewed & are unremarkable except as noted in HPI & below Physical Exam Physical Exam: General: patient resting comfortably, NAD, non-toxic in appearance, AA&O x 4 Skin: warm, dry, intact, no rashes or lesions HEENT: NC/AT, PERRL, EOMI, anicteric sclera, conjunctiva without injection, external ear normal to inspection and nontender, nares patent, moist mucus membranes, dentition intact, no oropharyngeal lesions, neck supple, trachea midline, no LAD, no thyromegaly, no JVD Heart: +S1/S2, regular, no m/r/g Lungs: equal air entry bilaterally, no rales/rhonchi/wheezes Abd: +BS diminished, soft, tender in lower abdomen with deep palpation, no rebound/guarding, ND, no masses/organomegaly/ascites Ext: warm, 2+ pulses in UE/LE bilaterally, no clubbing/cyanosis or edema Neuro: nonfocal, patient AA&O x 4, speech intact, no facial droop, moving all extremities on command with equal strength 5/5 Results & Data Results & Data ([facility]) Vital Signs (Past 12 Hours) Vital Signs Temp Pulse Resp BP Pulse Ox O2 Del Method 05/10/22 16:00 36.6 C 95 H 20 102/71 98 Room Air PG Care Time/CCT Total # of Minutes Spent Total Time Spent with Patient: Total time spent is greater than 50% in coordination of care (as documented) at patient's floor/unit and/or counseling patient: Coding Level of Care Code 10038 Subseq Hosp Care Lvl 3 Diagnoses SBO (small bowel obstruction) K56.609 Acute UTI N39.0 Hypothyroidism (acquired) E03.9 Depression F32.9 Rheumatoid arthritis M06.9
[2022-05-11] MEDS: SODIUM CHLORIDE 0.9% 1000ML 1,000 ML IV SCH ×2 (04:03→16:56)
--- NOTE | 2022-05-11 05:22 | Surgery Progress Note ---
Date of Service May 11, 2022 Assessment & Plan (1) SBO (small bowel obstruction): Plan: Patient has been admitted on the hospitalist service. We recommend proceeding as follows: Provide analgesics Provide antiemetics Provide hydration with intravenous fluids Continue n.p.o. status Continue NG tube for the present time. Consideration will be given to removing NG tube once return of bowel function is noted. If return of bowel function is not noted by tomorrow (05/12/2022) consideration will be given to performing a contrast study such as a small bowel follow- through for further evaluation Admission and Anticipated Discharge Date Admission Date: May 09, 2022 Supervising Physician Co-Signing Physician Notes I personally saw and evaluated the patient with Francisco Javier Leung PA-C and agree with the assessment and plan. 72-year-old female with small bowel obstruction, history of uterine cancer status post total abdominal hysterectomy in 2000 with subsequent pelvic radiation Continue NG tube/n.p.o. If she does not progress today, we will plan on a small bowel follow-through tomorrow She has no signs of any mesenteric ischemia, no plans for exploration at this time Will follow Subjective Patient is resting comfortably in bed. There is been not much in the way of interval change since my visit last evening. She denies any significant abdominal pain other than moderate pain to the left of her umbilicus. No nausea or vomiting. She denies shortness of breath. No fevers, shakes, or chills. She has yet to pass flatus or have a bowel movement since admission. She does feel as though her abdomen is "gurgling" more since last evening. Physical Exam Gastrointestinal (Abdomen): Abdomen is soft, nondistended, and nonrigid. Bowel sounds are present. There is minimal pain with palpation other than minor pain to the left of the umbilicus. No rebound tenderness or guarding. Results & Data ([facility]) Vital Signs (Past 12 Hours) Vital Signs Temp Pulse Resp BP Pulse Ox O2 Del Method 05/10/22 22:32 37 C 72 16 138/69 100 Room Air PG Care Time/CCT Total # of Minutes Spent Total Time Spent with Patient: Total time spent is greater than 50% in coordination of care (as documented) at patient's floor/unit and/or counseling patient: Coding Level of Care Code 18354 Subseq Hosp Care Lvl 1 Diagnoses SBO (small bowel obstruction) K56.600
[2022-05-11] MEDS: LEVOTHYROXINE SODIUM 75 MCG TABLET PO SCH (06:27)
[2022-05-11] MEDS: cefTRIAXone SODIUM 1,000 MG in DEXTROSE 5% 50 ML IV SCH (06:33)
[2022-05-11] MEDS: ENOXAPARIN INJ 30 MG/0.3 ML SYR SQ SCH (07:19)
[2022-05-11] MEDS: predniSONE 5 MG TAB PO SCH (07:20)
[2022-05-11 09:25] LABS: Mean Corpuscular Hemoglobin 29.2 pg (25.0-34.0); Mean Corpuscular Hgb Conc 32.3 g/dL (32.0-36.0); Mean Corpuscular Volume 90.6 fL (80.0-100.0); Mean Platelet Volume 9.2 fL (9.4-12.3); Platelet Count 268 K/uL (130-400); RDW Coefficient of Variation 13.2 % (11.5-14.5); RDW Standard Deviation 43.9 fL (36.4-46.3); Red Blood Count 3.42 M/uL (3.93-5.22); White Blood Count 5.12 K/ul (4.8-10.8)
[2022-05-11 09:53] LABS: BUN Creatinine Ratio 19.6 (10-20); Creatinine Clr Calc Pharmacy 79.6 ml/min; Est GFR (African American) 113.6 ml/min; Potassium 3.5 mmol/L (3.5-5.1)
[2022-05-11] MEDS ORDERED: DEXTROSE 50% 50 ML SYRINGE IV ONE ×2 (10:05→10:07)
--- NOTE | 2022-05-11 21:31 | Hospitalist Progress Note ---
Date of Service May 11, 2022 Assessment & Plan (1) SBO (small bowel obstruction): Plan: Patient presents with 2 days of abdominal pain, nausea and bilious vomiting. CT suggestive of moderate grade SBO. Nausea and pain now controlled. No abdominal distention. Patient with h/o as well as SHANNEN-BSO with radiation for uterine cancer in 2000 -Admit to medical -Keep NPO -discussed about NG tube, given lack of gas, and BM -NG tube placed. If no improvement by 05/12, will do small bowel follow through with contrast.. -Zofran PRN nausea -Morphine PRN pain -IVF and electrolyte repletion -General Surgery consultation appreciated (2) Acute UTI: Plan: UA suggestive of UTI. Patient with recent cystoscopy for workup of intermittent hematuria and bladder tumor. Patient with radiation cystitis as well as a papillar appearing tumor from the right side of the trigone. 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 Patient has not yet been made aware of these results -Ceftriaxone 1gm IV daily -Follow cultures (3) Hypothyroidism (acquired): Plan: Chronic. -Continue Synthroid 75mcg po daily -Check TSH with AM lab (4) Depression: Plan: Chronic. Stable -Continue Citalopram 10mg po daily (5) Rheumatoid arthritis: Plan: Chronic. Well controlled -Continue Prednisone 5mg po daily Ppx - Lovenox 30 Code - Full Dispo - Admit to medical Admission and Anticipated Discharge Date Admission Date: May 09, 2022 Subjective Patient reports no passing of gas or bowel movements. Review of Systems Review of Systems: All systems reviewed & are unremarkable except as noted in HPI & below Physical Exam Physical Exam: General: patient resting comfortably, NAD, non-toxic in appearance, AA&O x 4 Skin: warm, dry, intact, no rashes or lesions HEENT: NC/AT, PERRL, EOMI, anicteric sclera, conjunctiva without injection, external ear normal to inspection and nontender, nares patent, moist mucus membranes, dentition intact, no oropharyngeal lesions, neck supple, trachea midline, no LAD, no thyromegaly, no JVD Heart: +S1/S2, regular, no m/r/g Lungs: equal air entry bilaterally, no rales/rhonchi/wheezes Abd: +BS diminished, soft, tender in lower abdomen with deep palpation, no rebound/guarding, ND, no masses/organomegaly/ascites Ext: warm, 2+ pulses in UE/LE bilaterally, no clubbing/cyanosis or edema Neuro: nonfocal, patient AA&O x 4, speech intact, no facial droop, moving all extremities on command with equal strength 5/5 Results & Data Results & Data ([facility]) Vital Signs (Past 12 Hours) Vital Signs Temp Pulse Resp BP Pulse Ox O2 Del Method 05/11/22 17:37 36.7 C 66 18 131/75 100 Room Air PG Care Time/CCT Total # of Minutes Spent Total Time Spent with Patient: Total time spent is greater than 50% in coordination of care (as documented) at patient's floor/unit and/or counseling patient: Coding Level of Care Code 33790 Subseq Hosp Care Lvl 2 Diagnoses SBO (small bowel obstruction) K56.609 Acute UTI N39.0 Hypothyroidism (acquired) E03.9 Depression F32.9 Rheumatoid arthritis M06.9
[2022-05-11] MEDS: CITALOPRAM 20 MG TAB PO SCH (23:51)
[2022-05-12] MEDS: cefTRIAXone SODIUM 1,000 MG in DEXTROSE 5% 50 ML IV SCH (05:45)
[2022-05-12] MEDS: LEVOTHYROXINE SODIUM 75 MCG TABLET PO SCH (05:45)
[2022-05-12] MEDS: predniSONE 5 MG TAB PO SCH (07:11)
[2022-05-12] MEDS: ENOXAPARIN INJ 30 MG/0.3 ML SYR SQ SCH (09:16)
--- NOTE | 2022-05-12 09:44 | Surgery Progress Note ---
Date of Service May 12, 2022 Assessment & Plan (1) SBO (small bowel obstruction): Plan: She had a small bowel follow-through this morning which looks to have contrast in her colon, awaiting radiology read She did have some bowel movements and has no abdominal pain We will remove her NG tube and start a clear liquid diet This can be advanced as tolerated She tolerates her diet today she can be discharged later tonight versus tomorrow pending her progress Will follow Admission and Anticipated Discharge Date Admission Date: May 09, 2022 Subjective Patient seen and examined. Denies any abdominal pain. Had a bowel movement last night and this morning. Denies any nausea or vomiting. Afebrile. Review of Systems Constitutional: no fever and no chills Physical Exam Constitutional: WD/WN, vitals as above Gastrointestinal (Abdomen): Inspection/Auscultation: abdomen normal to inspection; abdomen not distended Percussion/Palpation: abdomen soft; abdomen nontender, no guarding and abdomen not rigid Results & Data ([facility]) Vital Signs (Past 12 Hours) Vital Signs Temp Pulse Resp BP Pulse Ox O2 Del Method 05/12/22 08:48 36.8 C 67 18 128/67 97 Room Air 05/11/22 22:52 36.9 C 75 18 151/78 H 100 Room Air PG Care Time/CCT Total # of Minutes Spent Total Time Spent with Patient: Total time spent is greater than 50% in coordination of care (as documented) at patient's floor/unit and/or counseling patient: Coding Level of Care Code 81827 Subseq Hosp Care Lvl 1 Diagnoses SBO (small bowel obstruction) K56.609
--- NOTE | 2022-05-12 11:44 | Fluoroscopy Report ---
[place] small bowel follow through CLINICAL HISTORY: Small bowel obstruction. Follow-up COMPARISON STUDY: KUB 05/10/2022. Abdomen and pelvis CT 05/08/2022. FLUOROSCOPY TIME: None.. FINDINGS: 3 fluoroscopic spot images of the abdomen and pelvis were submitted for review. There is a nasogastric tube within the stomach. 300 cc of Optiray 320 was placed through the indwelling nasogast kennedy tube. Contrast is seen within the small bowel. Contrast reached the large bowel at 20 minutes. Th ere is mild thickening of the small bowel folds. No transition point to suggest an obstruction. No di lated loops of bowel at this time. IMPRESSION: 1. Interval resolution of the small bowel obstruction. 2. Mild thickening of the small bowel loops suggestive of a nonspecific enteritis. ACT 112: Negative or not required by law. Electronically signed by: Dimitrios Ramey M.D. 05/12/2022 11:42 AM
[2022-05-12] MEDS: CITALOPRAM 20 MG TAB PO SCH (20:06)
--- NOTE | 2022-05-12 21:21 | Hospitalist Progress Note ---
Date of Service May 12, 2022 Assessment & Plan (1) SBO (small bowel obstruction): Plan: Patient presents with 2 days of abdominal pain, nausea and bilious vomiting. CT suggestive of moderate grade SBO. Nausea and pain now controlled. No abdominal distention. Patient with h/o as well as SHANNEN-BSO with radiation for uterine cancer in 2000 -Admit to medical -Keep NPO -discussed about NG tube, given lack of gas, and BM -NG tube placed 2 days ago. Removed on 05/12 due to BM imaging shows improvement of obstruction. -Zofran PRN nausea -Morphine PRN pain -IVF and electrolyte repletion -General Surgery consultation appreciated (2) Acute UTI: Plan: UA suggestive of UTI. Patient with recent cystoscopy for workup of intermittent hematuria and bladder tumor. Patient with radiation cystitis as well as a papillar appearing tumor from the right side of the trigone. 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 Patient has not yet been made aware of these results -Ceftriaxone 1gm IV daily -Follow cultures (3) Hypothyroidism (acquired): Plan: Chronic. -Continue Synthroid 75mcg po daily -Check TSH with AM lab (4) Depression: Plan: Chronic. Stable -Continue Citalopram 10mg po daily (5) Rheumatoid arthritis: Plan: Chronic. Well controlled -Continue Prednisone 5mg po daily Ppx - Lovenox 30 Code - Full Dispo - Admit to medical Admission and Anticipated Discharge Date Admission Date: May 09, 2022 Subjective 72 yo female reports she has had multiple BMs today. She is tolerating her diet. Review of Systems Review of Systems: All systems reviewed & are unremarkable except as noted in HPI & below Physical Exam Physical Exam: General: patient resting comfortably, NAD, non-toxic in appearance, AA&O x 4 Skin: warm, dry, intact, no rashes or lesions HEENT: NC/AT, PERRL, EOMI, anicteric sclera, conjunctiva without injection, external ear normal to inspection and nontender, nares patent, moist mucus membranes, dentition intact, no oropharyngeal lesions, neck supple, trachea midline, no LAD, no thyromegaly, no JVD Heart: +S1/S2, regular, no m/r/g Lungs: equal air entry bilaterally, no rales/rhonchi/wheezes Abd: +BS diminished, soft, tender in lower abdomen with deep palpation, no rebound/guarding, ND, no masses/organomegaly/ascites Ext: warm, 2+ pulses in UE/LE bilaterally, no clubbing/cyanosis or edema Neuro: nonfocal, patient AA&O x 4, speech intact, no facial droop, moving all extremities on command with equal strength 5/5 Results & Data Results & Data ([facility]) Vital Signs (Past 12 Hours) Vital Signs Temp Pulse Resp BP Pulse Ox O2 Del Method 05/12/22 16:14 36.8 C 77 16 118/75 100 Room Air PG Care Time/CCT Total # of Minutes Spent Total Time Spent with Patient: Total time spent is greater than 50% in coordination of care (as documented) at patient's floor/unit and/or counseling patient: Coding Level of Care Code 29452 Subseq Hosp Care Lvl 2 Diagnoses SBO (small bowel obstruction) K56.609 Acute UTI N39.0 Hypothyroidism (acquired) E03.9 Depression F32.9 Rheumatoid arthritis M06.9
[2022-05-13] MEDS: LEVOTHYROXINE SODIUM 75 MCG TABLET PO SCH (05:25)
[2022-05-13] MEDS: cefTRIAXone SODIUM 1,000 MG in DEXTROSE 5% 50 ML IV SCH (05:25)
--- NOTE | 2022-05-13 08:43 | Surgery Progress Note ---
Date of Service May 13, 2022 Assessment & Plan (1) SBO (small bowel obstruction): Plan: SBO resolving low fiber diet Admission and Anticipated Discharge Date Admission Date: May 09, 2022 Supervising Physician Co-Signing Physician Notes I personally saw and evaluated the patient with Narayan Arias PA-C and agree with the assessment and plan. 72-year-old female with resolving small bowel obstruction Advance diet as tolerated If she tolerates this diet she can be discharged home from a surgery standpoint With advocated low fiber diet for the next 2 weeks Avoid antidiarrheals when discharged No need for surgery follow-up upon discharge Subjective liquid/loose BMs, no pain or nausea on clears Physical Exam Gastrointestinal (Abdomen): Inspection/Auscultation: abdomen not distended Percussion/Palpation: abdomen soft; abdomen nontender Results & Data ([facility]) Vital Signs (Past 12 Hours) Vital Signs Temp Pulse Resp BP Pulse Ox O2 Del Method 05/13/22 07:18 36.6 C 69 16 107/62 100 Room Air 05/12/22 22:41 36.6 C 59 L 16 131/71 100 Room Air PG Care Time/CCT Total # of Minutes Spent Total Time Spent with Patient: Total time spent is greater than 50% in coordination of care (as documented) at patient's floor/unit and/or counseling patient: Coding Level of Care Code 33449 Subseq Hosp Care Lvl 1 Diagnoses SBO (small bowel obstruction) K56.609
[2022-05-13] MEDS: ENOXAPARIN INJ 30 MG/0.3 ML SYR SQ SCH (09:03)
[2022-05-13] MEDS: predniSONE 5 MG TAB PO SCH (09:03)
--- NOTE | 2022-05-14 10:01 | Discharge Summary ---
Date of Service May 13, 2022 Admission HPI Per Admitting Provider Humaira Greer is a 71yo female with remote history of Uterine CA s/p hysterectomy, RA on Prednisone, Hypothyroidism presenting with abdominal pain. Patient reports two days of diffuse abdominal pain, most in lower abdomen. She has had nausea with bilious emesis as well. Patient with chronic diarrhea - no diarrhea x 2 days, however. She did pass a small BM this AM. No flatus. No fever, chills, chest pain, cough, SOB. No additional complaints at this time. No prior history of SBO In the ER patient is afebrile, HD stable, NAD. Workup revealed SBO No nausea or abdominal distention noted. ER Course: Ceftriaxone Principal Diagnosis Small bowel obstruction Discharge Exam General: patient resting comfortably, NAD, non-toxic in appearance, AA&O x 4 Skin: warm, dry, intact, no rashes or lesions HEENT: NC/AT, PERRL, EOMI, anicteric sclera, conjunctiva without injection, external ear normal to inspection and nontender, nares patent, moist mucus membranes, dentition intact, no oropharyngeal lesions, neck supple, trachea midline, no LAD, no thyromegaly, no JVD Heart: +S1/S2, regular, no m/r/g Lungs: equal air entry bilaterally, no rales/rhonchi/wheezes Abd: +BS diminished, soft, tender in lower abdomen with deep palpation, no rebound/guarding, ND, no masses/organomegaly/ascites Ext: warm, 2+ pulses in UE/LE bilaterally, no clubbing/cyanosis or edema Neuro: nonfocal, patient AA&O x 4, speech intact, no facial droop, moving all extremities on command with equal strength 5/5 Discharge Data Allergies Allergy/AdvReac Type Severity Reaction Status Date / Time No Known Drug Allergies Allergy NKDA Verified 05/09/22 01:18 Consultations 05/09/22 00:40 ED Decision to Admit Stat 05/10/22 15:52 Consult General Surgery Routine Ordered Studies 05/08/22 21:23 CT abd pelvis IV con only Urgent 05/12/22 07:00 FL small bowel follow through Urgent Hospital Course (1) SBO (small bowel obstruction): Patient presents with 2 days of abdominal pain, nausea and bilious vomiting. CT suggestive of moderate grade SBO. Nausea and pain now controlled. No abdominal distention. Patient with h/o as well as SHANNEN-BSO with radiation for uterine cancer in 2000 -Admit to medical Initally treated NPO with NG tube. After 36 hours and no gas, recommended NG tube with intermittent suction. Less than 36 hours later, patient had BM, and was passing gas. NG TUBE REMOVED. Diet was slowly advanced and patient tolerated it. Will be on low residue diet for next 2 weeks. will hold imoodium for the mean time. may recommend followup with GI. (2) Acute UTI: UA suggestive of UTI. Patient with recent cystoscopy for workup of intermittent hematuria and bladder tumor. Patient with radiation cystitis as well as a papillar appearing tumor from the right side of the trigone. 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 Patient has not yet been made aware of these results: will defer to Urology -Ceftriaxone 1gm IV daily: completed 3 days of IV antibiotics (3) Hypothyroidism (acquired): Chronic. -Continue Synthroid 75mcg po daily (4) Depression: Chronic. Stable -Continue Citalopram 10mg po daily (5) Rheumatoid arthritis: Chronic. Well controlled -Continue Prednisone 5mg po daily Total Time Total Time Spent Total Time Spent (In Minutes): 35 Discharge Plan Discharge Items Patient Disposition: Home - Self-Care Reason For Visit: SBO Discharge Diagnosis: Small bowel obstruction Activity: Resume your previous activity Non-emergency contact: Primary Care Provider Call non-emergency contact if: you have any medication questions Follow-up/Referrals: Kathryn Benson DO [Primary Care Provider] - 05/21/22 10:20 am (An appointment was made for you to see VETO Ureña from Dr. Benson's office. If unable to keep this appointment please call to reschedule. ) Diet: Low Fiber Addtl Attending Provider Instructions: It was pleasure treating you as a patient, Mrs. Greer. Your small bowel obstruction resolved, and you are tolerating your diet. Will recommend low fiber diet for the next 2 weeks Please avoid antidiarrheals when discharged No need for surgery follow-up upon discharge Recommend followup with PCP. Pending Studies at Discharge: No Stand-Alone Forms: My [employer], Smoking Cessation Medications and DC Order Prescriptions: Continued citalopram 10 mg tablet 10 mg PO HS Qty: 90 1RF folic acid 1 mg tablet 1 mg PO QAM Qty: 90 1RF prednisone 5 mg tablet 5 mg PO QAM Restasis 0.05 % dropperette 1 drp ophthalmic (eye) Q12H Qty: 30 2RF calcium carbonate [Calcium 600] 600 mg calcium (1,500 mg) Tablet 600 mg PO QDD coenzyme Q10 [Co Q-10] 100 mg Capsule 100 mg PO QAM Centrum Silver 0.4-300-250 mg-mcg-mcg Tablet 1 tab PO QAM cholecalciferol (vitamin D3) [Vitamin D3] 5,000 unit Tablet 5,000 unit PO HS Ocuvite Adult 50 Plus 250-5-1 mg Capsule 1 cap PO QAM Neuriva Original 100-100 mg Capsule 1 cap PO QAM levothyroxine 75 mcg tablet 75 mcg PO QAM Discontinued nitrofurantoin macrocrystal 100 mg capsule 100 mg PO BID 30 Days Qty: 60 11RF Label Comments: Threw up shortly after Rx Instructions: must administer with a meal/food ferrous sulfate [iron] 325 mg (65 mg iron) Tablet 325 mg PO QDL Metamucil 3.4 gram/5.4 gram Powder 1 tbsp PO QDL loperamide [Imodium A-D] 2 mg Tablet 2 mg PO Q6H PRN (Reason: Diarrhea) Discharge Orders: Discharge Order (Routine); Ordered 05/13/22 Ordered By: Tavares Renee/Other Patient Handouts: Low-Fiber Diet Admission Data Admit Date/Time: 05/09/22 01:11 Attending Provider: Tavares Paris Admit Provider: Amara Sullivan Primary Care Provider: Kathryn Benson. Other Providers: Amara Sullivan ; James Dacosta. Other Interventions: Discharge Summary Assessment (RN) Last Done: 05/13/22 14:52 Coding Level of Care Code D/C DAY MANAGEMENT >30 MINS Diagnoses SBO (small bowel obstruction) K56.609 Acute UTI N39.0 Hypothyroidism (acquired) E03.9 Depression F32.9 Rheumatoid arthritis M06.9
== END 2022-05-13 17:00 | disposition home or self-care (01) | DRG 389 ==
LOC: ED 19:15 → EDINP 05-09 01:11 → SUATTDRO 05-09 01:11 → 3N 05-09 03:00